=== PATIENT | female | born 1995 | race Caucasian/White ===

== ENCOUNTER 2018-08-20 15:55 | Emergency (ER) | payer OTHER, SELFPAY ==
[2018-08-20 15:57] VITALS: BP 139/72; PULSE 94; RESP 16; TEMP 37.1; O2SAT 100; BMI 21.9
--- NOTE | 2018-08-20 16:05 | NURSING ---
NO OLD EKGS
[2018-08-20 16:13] VITALS: O2SAT 96
--- NOTE | 2018-08-20 16:13 | EKG12_ITS ---
Test Reason : PALPS Blood Pressure : / mmHG Vent. Rate : 088 BPM Atrial Rate : 088 BPM P-R Int : 144 ms QRS Dur : 084 ms QT Int : 376 ms P-R-T Axes : 072 094 066 degrees QTc Int : 454 ms Normal sinus rhythm with sinus arrhythmia Rightward axis Borderline ECG Confirmed by KENYA PRATT, SWAPNA ([id number]), editor sound ROX LINN ([id number]) on 08/23/2018 12:52:26 PM Referred By: JUN Confirmed By:SWAPNA ZAMBRANO MD
--- NOTE | 2018-08-20 16:13 | RAD_ITS ---
STUDY: X-RAY CHEST REASON FOR EXAM: Female, 23 years old. TECHNIQUE: 2 views COMPARISON: None. FINDINGS: The lungs are clear and expanded. There is no demonstrated pleural abnormality. Normal size heart. Normal mediastinum and tish. Normal visualized pulmonary arteries. Normal visualized aortic arch and descending thoracic aorta. Normal visualized thoracic spine. Normal visualized ribs, clavicles, and shoulders. There is no demonstrated abnormality of the visualized soft tissue structures of the upper abdomen. RAD/Chest PA and Lateral IMPRESSION: Normal x-ray examination of the chest. Electronically Signed: Emily Whitney, at 16:53 EST Tel , Service support ,
--- NOTE | 2018-08-20 16:15 | ED.VISSUMM ---
- ER Visit Summary Date of Service: 08/20/18 Chief Complaint: Palpitations History of Present Illness: The patient is a 23 F who presents for 2 hours of frequent palpitations. Patient states she has been having these episodes occur over the last 2 months. She will have episodes where she feels her heart is racing and skipping beats, with associated chest tightness and shortness of breath. Episodes last anywhere from 10-30 minutes. Patient states today her symptoms have been frequent since this morning. She denies any fever, weight loss, vision changes, URI symptoms, abdominal pain, nausea vomiting or diarrhea. No urinary symptoms. Patient denies any stimulant use including caffeine, energy drinks, or tobacco or drugs. No recent alcohol use. 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 She is on oral contraceptives. No recent travel or surgery. No history of venous thromboembolism. Physical Examination: Vital signs: afebrile, hemodynamically stable, no hypoxia on room air General: well nourished, well developed, in no distress, appears mildly anxious Skin: warm, dry, no rash, no pallor HEENT: normocephalic and atraumatic; PERRL, EOMI, moist mucous membranes Cardiovascular: regular rate and rhythm without murmurs, no peripheral edema, 2+ pulses all distal extremities Respiratory: No increased work of breathing, lungs are clear to auscultation bilaterally, no rales, rhonchi or wheezing Abdominal: Abdomen is soft, nontender with normoactive bowel sounds, no guarding or rebound, no masses MSK: Moves all extremities, no deformities, normal strength Neuro: Awake and alert, oriented ?4. No facial droop, sensation and motor function intact and symmetric Test Results: Abnormal Lab Results 08/20/18 08/20/18 08/20/18 16:34 16:34 16:55 WBC 7.8 RBC 4.51 Hgb 13.9 Hct 40.6 MCV 90.0 MCH 30.8 MCHC 34.2 RDW 11.9 RDW Differential 39.0 Plt Count 257 MPV 10.3 Immature Gran % (Auto) 0.100 Neut % (Auto) 48.9 Lymph % (Auto) 38.3 Crowley % (Auto) 6.9 Eos % (Auto) 5.2 H Baso % (Auto) 0.6 Absolute Neuts (auto) 3.8 Absolute Lymphs (auto) 2.99 Total Counted Not Reportable Sodium 138 Potassium 3.3 L Chloride 106 Carbon Dioxide 23.0 Anion Gap 9 BUN 13 Creatinine 0.88 Estim Creat Clear Calc 88.70 Est GFR (MDRD) Af Amer 101 Est GFR (MDRD) Non-Af 83 BUN/Creatinine Ratio 14.7 Glucose 85 Calcium 9.6 Magnesium 2.2 Troponin I < 0.015 TSH 2.49 Urine Color Urine Clarity Urine pH Ur Specific [place] Urine Protein Urine Glucose (UA) Urine Ketones Urine Occult Blood Urine Nitrite Urine Bilirubin Urine Urobilinogen Ur Leukocyte Esterase Urine RBC Urine WBC Ur Squamous Epith Cells Triple Phos Crystals Amorphous Sediment Urine Bacteria Urine Mucus Urine Test Negative 08/20/18 16:55 WBC RBC Hgb Hct MCV MCH MCHC RDW RDW Differential Plt Count MPV Immature Gran % (Auto) Neut % (Auto) Lymph % (Auto) Crowley % (Auto) Eos % (Auto) Baso % (Auto) Absolute Neuts (auto) Absolute Lymphs (auto) Total Counted Sodium Potassium Chloride Carbon Dioxide Anion Gap BUN Creatinine Estim Creat Clear Calc Est GFR (MDRD) Af Amer Est GFR (MDRD) Non-Af BUN/Creatinine Ratio Glucose Calcium Magnesium Troponin I TSH Urine Color Yellow Urine Clarity Clear Urine pH 7.0 Ur Specific [place] 1.005 Urine Protein Negative Urine Glucose (UA) Normal Urine Ketones Negative Urine Occult Blood Negative Urine Nitrite Negative Urine Bilirubin Negative Urine Urobilinogen Normal Ur Leukocyte Esterase 25 H Urine RBC 0 SEEN Urine WBC 0-5 SEEN Ur Squamous Epith Cells 0-5 SEEN Triple Phos Crystals RARE Amorphous Sediment 1+ PHOS Urine Bacteria 0 SEEN Urine Mucus 0 SEEN Urine Test Clinical Impression(s) from Imaging Studies Chest X-Ray 08/20/18 16:13 IMPRESSION: Normal x-ray examination of the chest. Electronically Signed: Emily Whitney, at 16:53 EST Tel , Service support , Medications Given Discontinued Medications Sodium Chloride () 1,000 mls @ 1,000 mls/hr IV .Q1H ONE Stop: 08/20/18 17:12 Last Admin: 08/20/18 16:30 Dose: 1,000 mls/hr Lorazepam (Ativan) 0.5 mg PO X1 ONE Stop: 08/20/18 16:15 Last Admin: 08/20/18 16:31 Dose: 0.5 mg Emergency Department Course and Treatment: Patient was having mild symptoms upon initial presentation, and telemetry showed a sinus rhythm with no ectopy or tachycardia. EKG showed sinus rhythm with no ischemic changes are proarrhythmic morphology. Patient had no leukocytosis or anemia on lab work. Electrolytes remarkable only for mild hypokalemia of 3.3. Troponin negative. negative. TSH within normal limits. X-ray of the chest showed no acute process. Patient was given a dose of Ativan for her anxiety and had great improvement in her symptoms. We discussed that no medical cause of her episodes was noted on this exam, but it does not an underlying medical etiology. She is to follow-up with her primary care provider. She was given a prescription for hydroxyzine for any further anxiousness. On reevaluation her heart rate was 84, she was normotensive, and she was feeling much better. Discharged home. Treatment Plan: [] Disposition: [] Impression: Episodic palpitations This note was generated with Fishidy dictation software. It may contain incorrect words, spelling, and punctuation that were not noted in review of the chart prior to signing ED Disposition - Plan for ED Patient: Disposition: Home or Assisted Living Chief Complaint: Palpitations Instructions: ED Palpitations Prescriptions: RX: Hydroxyzine HCl 25 mg PO TID PRN #30 tab PRN Reason: Anxiety Referrals: [facility] Doctor,Out of [Primary Care Provider] - Keep Sheba appointment Additional Instructions: Please follow-up with your doctor as scheduled for another evaluation of your episodes of heart racing. You may use the hydroxyzine as needed for symptoms of anxiousness. If you have any worsening of your condition or any new concerning symptoms, please return immediately to the emergency department for another evaluation.
[2018-08-20] MEDS: 0.9% Normal Saline 1,000 ML 1000 ML IV (16:30)
[2018-08-20] MEDS: LORazepam 0.5 MG Tablet PO (16:31)
[2018-08-20 16:42] LABS: Absolute Lymphocyte Count 2.99 X10^3/ul (0.83-4.51); Absolute Neutrophil Count 3.8 X10^3/uL (2.0-7.7); Basophil# 0.05 X10^3/uL; Basophil% 0.6 % (0-1); Eosinophil# 0.41 X10^3/uL; Eosinophils% 5.2 % (0-5); Hematocrit 40.6 % (37-47); Hemoglobin 13.9 g/dl (12.0-15.0); Lymphocyte # 2.99 X10^3/ul (4.0); Lymphocyte % 38.3 % (19-41); Mean Corp Hgb Conc 34.2 g/gl (32-36); Mean Corpuscular Hgb 30.8 pg (27.0-32.0); Mean Platelet Vol. 10.3 fl (6.2-12.0); Monocyte# 0.54 X10^3/uL; Monocyte% 6.9 % (0-10); Neutrophil # 3.81 X10^3/uL (2.7-7.7); Neutrophil % 48.9 % (47-70); Platelet Count 257 K/mm3 (150-450); RBC Distribution Width CV 11.9 % (11.6-14.6); Red Blood Count 4.51 M/mm3 (4.2-5.4); White Blood Count 7.8 K/mm3 (4.4-11.0)
[2018-08-20 16:46] LABS: POSITIVE COUNT NO; POSITIVE DIFFERENTIAL NO; POSITIVE MORPHOLOGY NO
[2018-08-20 17:02] LABS: Anion Gap 9 (5-15); BUN 13 mg/dL (7-18); BUN/Creat Ratio 14.7 RATIO (10-20); Calcium,Total 9.6 mg/dL (8.5-10.1); Chloride 106 mmol/L (98-107); Creatinine, Serum 0.88 mg/dL (0.55-1.02); EST Glomerular Filtration Rate 83 mL/min (>60); Est Glom Filt Rate - Afr Amer 101 mL/min (>60); Glucose 85 mg/dL (74-106); Magnesium 2.2 mg/dL (1.6-2.6); Potassium 3.3 mmol/L (3.5-5.1); Sodium Level 138 mmol/L (136-145); Thyroid Stim Hormone (TSH) 2.49 uIU/mL (0.358-3.74)
[2018-08-20 17:04] LABS: Bacteria 0 SEEN /hpf (None Seen); Mucous, Urine 0 SEEN /hpf (<or=2+); Red Blood Cells-Urine 0 SEEN /hpf (0-5)
[2018-08-20 17:13] LABS: Color, Urine Yellow (Yellow); Glucose, Dipstick Normal (Normal); Ketone-Dipstick Negative (Negative); Leukocyte Esterase-Dipstick 25 /ul (Negative); Nitrite-Dipstick Negative (Negative); Occult Blood-Urine Negative /ul (Negative); Protein-Dipstick Negative (Negative); Specific Gravity, Urine 1.005 (1.002-1.030); Urine Bilirubin Dipstick Negative (Negative); Urine Clarity Clear (Clear); Urine Urobilinogen Normal (Normal)
[2018-08-20 17:16] LABS: Internal QC Validated? YES +Cl - CLEAR BKGD; Pregnancy, Urine Negative Negative
[2018-08-20 17:33] LABS: Amorphous Sediment 1+ PHOS; Squamous Epithelial Cells - UA 0-5 SEEN /hpf (5-10); Triple Phosphate Crystals Ur RARE /hpf (<or=1+); White Blood Cells 0-5 SEEN /hpf (0-5)
--- NOTE | 2018-08-20 18:51 | ED.DEP ---
ED Disposition - Plan for ED Patient: Disposition: Home or Assisted Living Chief Complaint: Palpitations Instructions: ED Palpitations Prescriptions: Hydroxyzine HCl 25 mg PO TID PRN #30 tab PRN Reason: Anxiety Referrals: [facility] Doctor,Out of [Primary Care Provider] - Keep [facility] appointment Additional Instructions: Please follow-up with your doctor as scheduled for another evaluation of your episodes of heart racing. You may use the hydroxyzine as needed for symptoms of anxiousness. If you have any worsening of your condition or any new concerning symptoms, please return immediately to the emergency department for another evaluation.
[2018-08-20 18:58] VITALS: BP 103/65; PULSE 96; RESP 14; O2SAT 98
== END 2018-08-20 19:01 | disposition home or self-care (01) ==
PROVIDERS: Emergency Provider Emergency Medicine
DX: R00.2 Palpitations (principal)
CPT/HCPCS: 71046; 80048; 81001; 81025; 83735; 84443; 84484; 85025; 93005; 96360; 99285; J7030; A4216

== ENCOUNTER → 2021-03-26 15:29 | Outpatient (CLI) | payer OTHER, SELFPAY | PROVIDERS: Referring Provider Otolaryngology; Visit Provider Otolaryngology | DX: J32.9 Chronic sinusitis, unspecified (principal) | CPT/HCPCS: 87070; 87077; 87186; 87205 ==

== ENCOUNTER 2021-09-11 14:44 | Outpatient (CLI) | payer BC, MEDICAID, SELFPAY ==
--- NOTE | 2021-09-11 14:48 | CT_ITS ---
EXAM: CT MAXILLOFACIAL SINUSES WITHOUT INTRAVENOUS CONTRAST : 1995 CLINICAL INDICATION: SINUSITIS TECHNIQUE: Helically acquired images were obtained of the maxillofacial sinuses without intravenous contrast. This CT exam was performed using one or more of the following dose reduction techniques: automated exposure control, adjustment of the mA and/or kV according to patient size, and/or use of iterative reconstruction technique. This report was created using Veebow report generation technology. COMPARISON: None. FINDINGS: MAXILLARY SINUSES: Mucosal thickening. Ostiomeatal complexes are normally formed. SPHENOID SINUSES: Mucosal thickening. FRONTAL SINUSES: Mucosal thickening. ETHMOID AIR CELLS: Mucosal thickening. NASAL CAVITY/SEPTUM: Minor deviation of the nasal septum to the right of midline associated with a right-sided septal spur. Nasal turbinates are unremarkable. BONES/JOINTS: Anterior cranial fossa is unremarkable. ORBITS: Unremarkable. DENTAL: Unremarkable as visualized. No periodontal osseous erosion. . CT/Sinus/Facial Bone IMPRESSION: Mucosal thickening of the paranasal sinus suggestive of chronic sinusitis. Individualized dose optimization techniques were used for this CT. at 1523 Reported and signed by: Vishal Andrews MD Electronically Signed: Vishal Andrews MD at 15:21 EST Tel , Service support ,
== END 2021-09-11 23:59 | disposition short-term general hospital (02) ==
LOC: CT 14:47
PROVIDERS: Referring Provider Otolaryngology; Visit Provider Otolaryngology
DX: J32.9 Chronic sinusitis, unspecified (principal)
CPT/HCPCS: 70486

== ENCOUNTER 2021-09-13 10:00 | Outpatient (CLI) | payer BC, MEDICAID, SELFPAY ==
[2021-09-16 04:07] LABS: Chlamydia By Nucleic Acid AMP Negative (Negative)
[2021-09-16 11:23] LABS: Gonococcus By Nucleic Acid AMP Negative (Negative)
[2021-09-17 16:51] LABS: HPV Reflexed? NOT INDICATED
== END 2021-09-13 23:59 | disposition short-term general hospital (02) ==
LOC: WOBLAB 10:05
PROVIDERS: Visit Provider Obstetrics & Gynecology
DX: Z12.4 Encounter for screening for malignant neoplasm of cervix (principal); Z11.3 Encounter for screening for infections with a predominantly sexual mode of transmission
CPT/HCPCS: 87491; 87591; 88175; G0145

== ENCOUNTER 2021-11-12 09:44 | Day surgery (SDC) | payer BC, SELFPAY ==
[2021-11-12] VITALS (7 sets, daily range): BP systolic 109–133; BP diastolic 65–92; PULSE 62–91; RESP 16–18; TEMP 36.2–36.7; O2SAT 94–99; BMI 29.1
[2021-11-12] MEDS: Lactated Ringers 1,000 ML 15 ML IV ×2 (10:00→13:44)
[2021-11-12 10:19] LABS: Internal QC Validated? YES +Cl - CLEAR BKGD; Pregnancy, Urine Negative Negative
--- NOTE | 2021-11-12 11:05 | ETH_PTH ---
PATIENT: ANNA PAYAN [place] [facility] [id number] AGE/SX: 26/F ROOM: RE11/12/[address]: Dr. Ranjeet Churchill MD : 1995 BED: DIS: 11/12/2021 SPEC #: [id number] RECD: 11/12/21 14:34 STATUS: DANY KINCAID #: [id number] JUAN: 11/12/21 11:[address]: Ranjeet Churchill DEPT: SURGICAL PATHOLOGY RECD BY: Subha Posada ENTERED: 11/13/21 09:31 SP TYPE: ETH TISS OTHR DR: Dacia Primary Care Phys Tissues: A - Ethmoid sinus, NOS B - Ethmoid sinus, NOS Procedures: Decalcification bone/plaque Surgery Specimen Level IV HEADER OPERATION: Septoplasty/rhinoplasty, functional endoscopic sinus surgery PRE-OP DIAGNOSIS: Chronic pansinusitis TISSUE SUBMITTED: A ? Right sinus contents, B ? Left sinus contents MICROSCOPIC DIAGNOSIS A. Right sinus contents: Fragments of respiratory mucosa and turbinate with mild chronic inflammation and bone. B. Left sinus contents: Fragments of respiratory mucosa and turbinate with mild chronic inflammation and bone. ANN:zo 11/18/2021 MICROSCOPIC DESCRIPTION Slides are reviewed. GROSS DESCRIPTION A - Received in fixative is one container labeled with the patient's name and designated right sinus contents. The specimen consists of multiple irregular fragments of nolasco soft tissue mixed with fragments of bone and turbinate that in aggregate measure 3 x 2.5 x 0.3 cm. The specimen is totally submitted in one cassette after decalcification. B - Received in fixative is one container labeled with the patient's name and designated left sinus contents. The specimen consists of multiple irregular fragments of nolasco soft tissue mixed with fragments of bone and turbinate that in aggregate measure 3 x 2.5 x 0.3 cm. The specimen is totally submitted in one cassette after decalcification. / ANN:zo 11/13/2021 TC:3 CPT: 05231 x2, 47721 x2
--- NOTE | 2021-11-12 11:30 | PCM.DC ---
Discharge Instructions Diet Discharge Diet: No restrictions Activity Discharge Activity: Return to Normal Activity Dressing / Incision Call your doctor if your incision/area has: Sudden Increased Bleeding Additional Dressing/Incision Instructions:: sleep with head of bed elevated. saline to nose three times daily. mupirocin to nostrils twice daily. Follow Up Care Please Follow Up With: cait When: next thursday Test Results: Test results from this visit will be discussed in further detail at your follow-up appointment, if applicable. Discharge Plan Admission Attending Provider: Milad Churchill Primary Care Provider: Care Physician,Daica Primary Discharge Orders/Prescriptions Prescriptions: No Action Zyrtec 10 MG capsule 10 mg PO DAILY RF: 0 sertraline [Zoloft] 50 mg Tablet 50 mg PO DAILY RF: 0 Disposition Discharge Orders: Discharge Patient (Routine); Ordered 11/12/21 Ordered By: Dr. Milad Churchill
--- NOTE | 2021-11-12 11:32 | PCM.OPRPT ---
Problems Associated Problem List Diagnoses (1) Chronic pansinusitis: (2) Nasal septal deviation: (3) Hypertrophy of both inferior nasal turbinates: (4) Polyp of both nasal cavities: Report of Operation Date of Procedure: 11/12/21 Pre-Operative Diagnosis: 1. nasal congestion 2. nasal septal deviation 3. inferior turbinate hypertrophy 4. chronic pansinusitis Post-Operative Diagnosis: 1. nasal congestion 2. nasal septal deviation 3. inferior turbinate hypertrophy 4. chronic pansinusitis Surgery/Procedure Performed:: 1. endoscopic maxillary antrostomy with removal of contents, right and left 2. endoscopic total ethmoidecotmy, right and left 3. endoscopic sphenoidotomy with removal of contents, right and left 4. endoscopic frontal sinus exploration removal of contents, right and left 5. septoplasty 6. submucous resection inferior turbinates, right and left 7. CT image guidance navigation Surgeon: Milad Churchill Type of Anesthesia: General Description of Procedure: On the day of the procedure, after appropriate informed consent was obtained, the patient was brought to the operating room and placed in a supine position on the operating room table. The patient was placed under general endotracheal anesthesia by the anesthesiologist. The endotracheal tube was secured. image guidance navigation was set up on the face and accuracy was confirmed. the nose was injected with lidocaine/epinephrine and decongested with oxymetazoline-soaked pledgets. a marginal incision was made with a #15 blade on the left side. a submucoperichondrial plane was developed on the patient's left side with a zia elevator. this was taken posteriorly to the bony/cartilaginous junction and inferiorly to the maxillary crest. after an L-strut was marked, a leftward defection and bony spur were removed with a D-knife and rolo moore. the head of the right and left turbinates were injected with lidocaine/epinephrine. the head of the left inferior turbinate was incised with a 15 blade, dissected submucosally with a zia elevator, reduced using suction electrocautery and outfractured using a boies elevator. the head of the right inferior turbinate was incised with a 15 blade, dissected submucosally with a zia elevator, reduced using suction electrocautery and outfractured using a boies elevator. the zero degree endoscope was used to evaluate the nasal cavity. the superior attachment of the right and left middle turbinate and uncinate processes were injected with lidocaine/epinephrine. the left nasal cavity was evaluated. the middle turbinate was medialized. a maxillary antrostomy and uncinectomy were performed with a zia elevator and a pilo cut. the antrostomy was widened with a back-biter. purulent material was evacuated. the ethmoid bulla was entered bluntly with the suction. a total ethmoidectomy was performed with a curette and an upgoing blakesley. this was taken superiorly to the skull base and laterally to the lamina. a stankewicz maneuver was performed and no laminar defect was noted. the natural sphenoid os was widened with the microdebrider and contents were evacuated. the frontal recess was explored and contents were evacuated. hemostasis was achieved with suction cautery; emmanuel was placed. the right nasal cavity was evaluated. the middle turbinate was medialized. a maxillary antrostomy and uncinectomy were performed with a zia elevator and a pilo cut. the antrostomy was widened with a back-biter. the ethmoid bulla was entered bluntly with the suction. a total ethmoidectomy was performed with a curette and an upgoing blakesley. this was taken superiorly to the skull base and laterally to the lamina. a stankewicz maneuver was performed and no laminar defect was noted. the natural sphenoid os was widened with the microdebrider and contents were evacuated. the frontal recess was explored and contents were evacuated. hemostasis was achieved with suction cautery; emmanuel was placed. chopra splints were sutured into place. a nasogastric tube was inserted orally and contents were evacuated. the table was rotated 90 degrees toward the anesthesiologist and was subsequently extubated uneventfully. he was transferred to the PACU in stable condition.
[2021-11-12] MEDS: Clindamycin 900 MG/50 ML BAG 75 MG IV (11:44)
[2021-11-12] MEDS: Oxymetazoline 0.05% 1 SPRAY SPRAY.BTL 15 SPRAY (13:27)
[2021-11-12] MEDS: Mupirocin Ointment 22gm Tube 1 APPLIC (13:27)
[2021-11-12] MEDS: Lidocaine 1% /Epi 1:100 (50ml) 50 ML VIAL (13:28)
[2021-11-12] MEDS: HYDROcodone Bitartrate/Apap 5/325 Tablet PO (14:58)
== END 2021-11-12 23:59 | disposition home or self-care (01) ==
LOC: SDC 09:47 → AC 09:49
PROVIDERS: Anesthesiology; Visit Provider Otolaryngology
PROC: (CPT 30520; principal; 2021-11-12 10:50)
DX: J34.2 Deviated nasal septum (principal); J32.4 Chronic pansinusitis; J33.9 Nasal polyp, unspecified; J34.3 Hypertrophy of nasal turbinates; Z79.899 Other long term (current) drug therapy
CPT/HCPCS: 31257; 30520; 30140; 31276; 31267; 00160; 81025; 88305; 88311; J7120; J2405

== ENCOUNTER 2021-11-14 15:38 | Outpatient (CLI) | payer BC, SELFPAY ==
--- NOTE | 2021-11-14 | IMM_PTH ---
PATIENT: ANNA PAYAN LOC: [facility] U#:[id number] AGE/SX: 26/F ROOM: RE11/14/[address]: Dr. Agustín Sarabia MD : 1995 BED: DIS: 11/14/2021 SPEC #: [id number] RECD: 11/18/21 12:39 STATUS: DANY REQ #: [id number] JUAN: 11/14/21 00:[address]: Agustín Sarabia DEPT: IMMUNOHISTOCHEMISTRY RECD BY: Keli Cardona ENTERED: 11/18/21 12:40 SP TYPE: IMMUNO OT DR: No Primary Care Phys Tissues: B - Uterine cervix, NOS Procedures: p16 (initial) KI-67 (add) PHYSICIAN & INSTITUTION [place] [id number] SPECIMEN INFORMATION: Tissue Source: B ? Cervical biopsy Clinical Info: CHERRIE Specimen Number: [id number] CPT code: 42403, 89478 METHODOLOGY: Deparaffinized sections of prefer/formalin-fixed tissue or PAP/DQ stained slides are incubated with monoclonal/polyclonal antibodies/oligonucleotide probes. Localization is made via biotin free immunoperoxidase method. Appropriate controls are performed and reacted as expected. Results on target cell population are indicated in the following table: RESULTS: ANTIBODY / CLONE RESULT Block B P16 (E6H4) positive, patchy, focal Ki-67 (30-9) positive, low These tests were developed and their performance characteristics determined by [facility]. They may not have been cleared or approved by the U.S. Food and Drug Administration. The FDA has determined that such clearance or approval is not necessary. The above immunohistochemical/dualISH markers are ordered and reviewed by the Pathologist. INTERPRETATION: B. Cervical biopsy: Focal changes consistent with HPV cytopathic effects. SJ:zo 11/19/2021
--- NOTE | 2021-11-14 | CER_PTH ---
PATIENT: ANNA PAYAN [facility][id number] AGE/SX: 26/F ROOM: RE11/14/[address]: Dr. Agustín Sarabia MD : 1995 BED: DIS: 11/14/2021 SPEC #: [id number] RECD: 11/14/21 17:08 STATUS: DANY REMax #: [id number] JUAN: 11/14/21 00:[address]: Agustín Sarabia DEPT: SURGICAL PATHOLOGY RECD BY: Neftali Ta ENTERED: 11/15/21 08:52 SP TYPE: CERV OTHR DR: No Primary Care Phys Tissues: A - Endocervical B - Uterine cervix, NOS Procedures: Surgery Specimen Level IV HEADER OPERATION: Colposcopy PRE-OP DIAGNOSIS: LGSIL TISSUE SUBMITTED: A ? Endocervical curettings, B ? Cervical biopsy MICROSCOPIC DIAGNOSIS A. Endocervical curettings: Fragments of benign ectocervical epithelium and benign endocervical mucosa with chronic inflammation. Negative for dysplasia. B. Cervix, biopsy: Fragments of ectocervical mucosa with changes consistent with HPV cytopathic effects. See comment. ANN:zo 11/18/2021 COMMENT B. Immunohistochemistry ([id number]) for surrogate HPV marker (p16) supports the above diagnosis. MICROSCOPIC DESCRIPTION Slides are reviewed. GROSS DESCRIPTION A - Received in fixative is one container labeled with the patient's name and designated endocervical curettings. The specimen consists of a scant amount of soft tissue. The specimen is totally submitted for cell block preparation. B - Received in fixative is one container labeled with the patient's name and designated cervical biopsy. The specimen consists of multiple (four) irregular fragments of light nolasco soft tissue that in aggregate measure 1.3 x 0.3 x 0.2 cm. The specimen is totally submitted in one cassette. / ANN:zo 11/15/2021 TC:5 CPT: 67794 x2
== END 2021-11-14 23:59 | disposition home or self-care (01) ==
LOC: LABSPEC 15:39
PROVIDERS: Referring Provider Obstetrics & Gynecology; Visit Provider Obstetrics & Gynecology
DX: R87.622 Low grade squamous intraepithelial lesion on cytologic smear of vagina (LGSIL) (principal)
CPT/HCPCS: 88305; 88341; 88342

== ENCOUNTER → 2022-02-04 | Outpatient (CLI) | payer BC, SELFPAY ==
[2022-02-06 22:07] LABS: Chlamydia By Nucleic Acid AMP Negative (Negative)
[2022-02-06 22:13] LABS: Gonococcus By Nucleic Acid AMP Negative (Negative)
== END | disposition home or self-care (01) ==
LOC: LABSPEC 15:23
PROVIDERS: Visit Provider Obstetrics & Gynecology
DX: Z11.3 Encounter for screening for infections with a predominantly sexual mode of transmission (principal)
CPT/HCPCS: 87491; 87591

== ENCOUNTER 2022-03-04 09:50 | Outpatient (CLI) | payer BC, SELFPAY ==
[2022-03-04 12:18] LABS: Absolute Lymphocyte Count 2.09 X10^3/uL (0.83-4.51); Absolute Neutrophil Count 3.1 X10^3/uL (2.0-7.7); Basophil# 0.06 X10^3/uL; Eosinophil# 0.28 X10^3/uL; Eosinophils% 4.7 % (0-5); Hematocrit 41.2 % (37-47); Hemoglobin 13.9 g/dL (12.0-15.0); Lymphocyte # 2.09 X10^3/ul (0.83-4.51); Mean Corp Hgb Conc 33.7 g/dL (32-36); Mean Corpuscular Hgb 30.5 pg (27.0-32.0); Mean Corpuscular Volume 90.5 fL (81-99); Mean Platelet Vol. 10.7 fl (6.2-12.0); Monocyte# 0.47 X10^3/uL; Monocyte% 7.9 % (0-10); NRBC Flagged by Analyzer 0 % (0-5); Neutrophil # 3.06 X10^3/uL (2.7-7.7); Neutrophil % 51.2 % (47-70); Platelet Count 275 K/mm3 (150-450); RBC Distribution Width CV 12.3 % (11.6-14.6); RBC Distribution Width SD 40.7 fl (35.1-43.9); Red Blood Count 4.55 M/mm3 (4.2-5.4)
[2022-03-04 12:56] LABS: AST(SGOT) 21 U/L (15-37); Alanine Aminotransfer ALT/SGPT 24 U/L (13-56); Albumin, Serum 3.9 g/dL (3.2-5.0); Alkaline Phosphatase 63 U/L (45-117); Anion Gap 5 (5-15); BUN 12 mg/dL (7-18); BUN/Creat Ratio 13.2 RATIO (10-20); Calcium,Total 9.3 mg/dL (8.5-10.1); Chloride 103 mmol/L (98-107); Cholesterol 208 mg/dL (200); Creatinine, Serum 0.91 mg/dL (0.55-1.02); EST Glomerular Filtration Rate 78 mL/min (>60); Est Glom Filt Rate - Afr Amer 95 mL/min (>60); Glucose 90 mg/dL (74-106); High Density Lipoprotein 68 mg/dL; Potassium 3.8 mmol/L (3.5-5.1); Protein, Total 7.9 g/dL (6.4-8.2); Sodium Level 134 mmol/L (136-145); Thyroid Stim Hormone (TSH) 2.08 uIU/mL (0.358-3.74); Triglycerides 78 mg/dL; Very Low Density Lipoprotein 16 mg/dL (5-40)
== END 2022-03-04 23:59 | disposition home or self-care (01) ==
LOC: MFPLAB 09:51
PROVIDERS: PCP Family Medicine; Referring Provider Family Medicine; Visit Provider Family Medicine
DX: Z00.00 Encounter for general adult medical examination without abnormal findings (principal); Z13.29 Encounter for screening for other suspected endocrine disorder; Z13.220 Encounter for screening for lipoid disorders; Z13.1 Encounter for screening for diabetes mellitus; Z13.0 Encounter for screening for diseases of the blood and blood-forming organs and certain disorders involving the immune mechanism
CPT/HCPCS: 36415; 80053; 80061; 83036; 84443; 85025

== ENCOUNTER → 2022-03-12 | Outpatient (CLI) | payer BC, SELFPAY | END | disposition home or self-care (01) | LOC: LABSPEC 15:18 | PROVIDERS: PCP Family Medicine; Visit Provider Otolaryngology | DX: J32.8 Other chronic sinusitis (principal) | CPT/HCPCS: 87070; 87077; 87186; 87205 ==

== ENCOUNTER → 2022-09-11 | Outpatient (CLI) | payer OTHER, SELFPAY | END | disposition home or self-care (01) | LOC: LABSPEC 15:57 | PROVIDERS: PCP Family Medicine; Referring Provider Otolaryngology; Visit Provider Otolaryngology | DX: J32.9 Chronic sinusitis, unspecified (principal) | CPT/HCPCS: 87070; 87077; 87186; 87205 ==

== ENCOUNTER → 2023-03-26 | Outpatient (CLI) | payer OTHER, SELFPAY ==
--- NOTE | 2023-03-26 18:18 | US_ITS ---
EXAM: US , TRANSVAGINAL CLINICAL INDICATION: DATING TECHNIQUE: Real-time transvaginal obstetrical ultrasound of the maternal pelvis and a first trimester with image documentation. Transvaginal imaging was used for better evaluation of the fetus and adnexa. COMPARISON: No relevant prior studies available. FINDINGS: GESTATION: There is an intrauterine gestational sac sac diameter 1.6 cm HC. There is a 4 mm yolk sac. [place]-rump length of 4 mm age 6 weeks 2 days. No cardiac activity is identified on this study. PLACENTA/AMNIOTIC FLUID: There is a 1.0 x 0.5 cm hypoechoic area in the uterus adjacent to gestational sac which may represent subchorionic hemorrhage. UTERUS/CERVIX: The uterus measures 7.1 x 4.0 x 6.1 cm. No myometrial mass. OVARIES: The left ovary measures 3.5 x 2.0 0.9 cm. There is a 5 x 2.2 x 4 cm cyst in the left ovary. The right ovary measures 2.2 x 1.0 x 1.8 cm. No mass. FREE FLUID: No free fluid. US/Transvaginal w/Preg US IMPRESSION: Intrauterine gestation with an average ultrasound age of 6 weeks 3 days and ultrasound estimated due date of 11/16/2023. There is no heart rate identified at this time which may be due to early gestation. Short-term follow-up ultrasound may be beneficial. Electronically Signed: Tom Hutton MD at 20:37 EDT ,
[2023-03-29 08:08] LABS: Chlamydia By Nucleic Acid AMP Negative (Negative); Gonococcus By Nucleic Acid AMP Negative (Negative)
[2023-04-01 18:58] LABS: HPV Reflexed? NOT INDICATED
== END | disposition home or self-care (01) ==
PROVIDERS: PCP Family Medicine; Referring Provider Obstetrics & Gynecology; Visit Provider Obstetrics & Gynecology
DX: Z34.90 Encounter for supervision of normal pregnancy, unspecified, unspecified trimester (principal)
CPT/HCPCS: 76817; 87086; 87088; 87491; 87591; 88175; G0145

== ENCOUNTER → 2023-03-31 | Outpatient (CLI) | payer OTHER, SELFPAY ==
--- NOTE | 2023-03-31 13:32 | US_ITS ---
STUDY: FIRST TRIMESTER OBSTETRICAL ULTRASOUND REASON FOR EXAM: Female, 28 years old . Viability. LMP: January 17, 2023 TECHNIQUE: Transvaginal TECHNICAL QUALITY: Adequate. PRIOR ULTRASOUND: Comparison is made with prior study March 26, 2023. FINDINGS: There is visualization of a single gestational sac in a normal intrauterine position. The mean sac diameter (MSD) measures 1.73 cm, indicating an estimated gestational age (EGA) of 6 weeks, 4 days. The gestational sac shape is irregular. There is a visualized yolk sac. The yolk sac measures 3.5 mm. The placenta is non-visualized. There is visualization of an embryo with no cardiac activity, consistent with intrauterine demise. The crown-rump length (CRL) measures 4.3 mm, indicating an estimated gestational age (EGA) of 6 weeks, 2 days. The estimated gestation age (EGA) by LMP is 10 weeks, 3 days. The estimated date of delivery (TESFAYE) by LMP is October 24, 2023. The estimated gestation age (EGA) by US is 6 weeks, 3 days. The estimated date of delivery (TESFAYE) by US is November 21, 2023. The uterus measures 9.3 cm x 6.6 x 4.8 cm. There is no demonstrated uterine fibroid. The cervix is closed. Small subchorionic bleed. The right ovary measures 2 cm x 1.2 cm x 1.5 cm. There is no right ovarian cyst. There is no visualized right adnexal mass or complex lesion. The left ovary measures 3.5 cm x 2.4 cm x 2.2 cm. There is no left ovarian cyst. There is no visualized left adnexal mass or complex lesion. There is no fluid in the cul de sac. US/Transvaginal w/Preg US IMPRESSION: demise. Electronically Signed: Marky Menjivar MD at 14:34 EDT ,
== END | disposition home or self-care (01) ==
PROVIDERS: PCP Family Medicine; Referring Provider Obstetrics & Gynecology; Visit Provider Obstetrics & Gynecology
DX: Z34.90 Encounter for supervision of normal pregnancy, unspecified, unspecified trimester (principal)
CPT/HCPCS: 76817

== ENCOUNTER 2023-04-02 10:58 | Day surgery (SDC) | payer OTHER, SELFPAY ==
[2023-04-02] VITALS (7 sets, daily range): BP systolic 97–110; BP diastolic 58–77; PULSE 59–82; RESP 16–18; TEMP 36.2–36.3; O2SAT 98–100; BMI 32.1
--- NOTE | 2023-04-02 11:10 | PCM.HP.BLA ---
History and Physical MR#: [id number] Acct: [id number] Name: ANNA DAMON Rep #: [id number] : 1995 Provider: Dr. 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 Sandi Longo MD) Alcohol use Anxiety Asthma Chronic pansinusitis COVID-19 History of echocardiogram Hypertrophy of both inferior nasal turbinates Injury of head and neck Migraine headache Nasal septal deviation Non-smoker Polyp of both nasal cavities Wears contact lenses Surgical History H/O nasal septoplasty Hx of colonoscopy Hx of hand surgery Family History (Updated 03/26/23 @ 10:57 by Caroline Turpin) Grandfather Heart disease HypertensionFather Hypertension Social History (Updated 03/26/23 @ 10:57 by Caroline Turpin) Smoking Status: Never smoker details: not while substance use type: does not use caffeine: Yes what type of physical activity do you participate in: bicycling and weight training frequency: 1-2 times per week seatbelt use: always do you feel safe at home: Yes additional social history: - Eben [facility] demise Details: ANNA DAMON is a 28 year old who presents for follow up of early she denies any bleeding or discharge denies any pelvic pain. she is having some crmaping but nothing severe no fevers. repeat ultrasound shows no significant interval growth and no heart rate. History 1 Elective abortions Hx Para Spontaneous abortions Hx # Term Pregnancies Ectopic pregnancies Hx # Pregnancies Multiple births # of living children ROS Const Constitutional: Denies fatigue, fever(s), headache(s), increased appetite, poor appetite, weight gain or weight loss GI GI: Reports as per HPI; Denies abdominal pain, constipation, nausea or vomiting : Reports as per HPI; Denies difficulty voiding, dysuria, hematuria, pelvic pain, urinary frequency, urinary incontinence, urinary hesitancy, urinary urgency, vaginal discharge, vaginal dryness, vaginal odor, vaginal pruritus or other Exam Const General: cooperative, healthy appearing, comfortable, no acute distress and well developed Orientation: alert HENMT Head: normal to inspection and normocephalic Ears: hearing grossly normal bilaterally and external ears normal Nose: external nose normal and nares normal Face and sinus: normal facial exam Neck Neck: normal visual inspection, no lymphadenopathy and trachea midline Thyroid: thyroid normal Resp Effort & Inspection: normal respiratory effort Musc Other: gross motor intact no deficits, full bilateral strength Skin General: no rashes or lesions noted Neuro Motor: muscle tone normal throughout Coding Level of Care Code Off vis,est,level 4 Diagnoses LGSIL of cervix of undetermined significance R87.612 Seasonal allergies J30.2 Supervision of high risk in first trimester O09.91 Obesity affecting O99.210 Z34.90 Missed O02.1 Assessment and Plan Assessment and Plan (1) LGSIL of cervix of undetermined significance: Status: Acute Comment: 08/2021 (2) Seasonal allergies: Status: Acute (3) Supervision of high risk in first trimester: Status: Acute Comment: : Eben (4) Obesity affecting : Status: Acute Comment: 1 hr GTT given at [facility] (5) : Status: Acute (6) Missed : Status: Acute Comment: DISCUSSED OPTIONS PLAN SUCTION D AND C Plan After discussing the patient's diagnosis and treatment plan options, patient wishes to proceed with surgical management. I have discussed with the patient the risks, benefits, and alternatives of the procedure which include but are not limited to risks of anesthesia, bleeding, infection, possible damage to bowel, bladder, or surrounding vasculature which could lead to additional surgery to evaluate any complications. Patient agrees to procedure and wishes to proceed. ACOG/uptodate references given for additional information regarding procedure. UPDATE- I have seen the patient and performed any clinically relevant updates to the history and physical exam. Sandi Longo MD
[2023-04-02] MEDS: Lactated Ringers 1,000 ML 15 ML IV (11:39)
[2023-04-02] MEDS: Doxycycline 100 MG CAPSULE PO (11:41)
[2023-04-02 11:43] LABS: Hematocrit 40.2 % (37-47); Hemoglobin 13.5 g/dL (12.0-15.0); Mean Corp Hgb Conc 33.6 g/dL (32-36); Mean Corpuscular Hgb 30.3 pg (27.0-32.0); Mean Corpuscular Volume 90.3 fL (81-99); Mean Platelet Vol. 9.8 fl (6.2-12.0); Platelet Count 286 K/mm3 (150-450); RBC Distribution Width CV 11.7 % (11.6-14.6); RBC Distribution Width SD 38.8 fl (35.1-43.9); Red Blood Count 4.45 M/mm3 (4.2-5.4); White Blood Count 7.6 K/mm3 (4.4-11.0)
--- NOTE | 2023-04-02 12:30 | POC_PTH ---
PATIENT: ANNA PAYAN LOC: [facility] [place] U#:[id number] AGE/SX: 28/F ROOM: RE04/02/[address]: Dr. Sandi Longo MD : 1995 BED: DIS: 04/02/2023 SPEC #: [id number] RECD: 04/02/23 14:10 STATUS: DANY KINCAID #: [id number] JUAN: 04/02/23 12:[address]: Sandi Longo DEPT: SURGICAL PATHOLOGY RECD BY: Mary Ann Brown ENTERED: 04/03/23 09:05 SP TYPE: PROD CONC OTHR DR: Meseret Walker DO Tissues: Product of conception, NOS Procedures: Surgery Specimen Level IV HEADER OPERATION: Suction dilation and curettage PRE-OP DIAGNOSIS: Missed TISSUE SUBMITTED: Products of conception MICROSCOPIC DIAGNOSIS Endometrium, curettage: Chorionic villi with focal hydropic change, decidualized stroma and trophoblastic cells consistent with products of conception. AM:zo 04/06/2023 MICROSCOPIC DESCRIPTION Slides are reviewed. GROSS DESCRIPTION Received in fixative is one container labeled with the patient's name and designated products of conception. The specimen consists of multiple irregular fragments of light nolasco soft tissue that in aggregate measure 7.0 x 5.0 x 1.0 cm. parts are not grossly recognized. Blood And Plasma Laboratory Assistant portions are submitted in one cassette. / AM:zo 04/03/2023 TC:5 CPT: 03430
[2023-04-02] MEDS: Lidocaine 1% (30 ml sdv) 30 ML Vial (12:35)
--- NOTE | 2023-04-02 13:36 | DCINST_ITS ---
Discharge Instructions Diet Discharge Diet: No restrictions Activity Discharge Activity: Return to Normal Activity, May Shower and May Take a Tub Bath (after 1 week) May resume sexual activity in: 1-2 weeks Weight Bearing Status: Weight bearing as tolerated Lifting Restrictions: none Dressing / Incision Call your doctor if you observe: Fever of 101 or Higher, Using more than 1 pad per hour, Shortness of breath and Uncontrolled pain Follow Up Care Please Follow Up With: Sandi Longo MD When: Call [phone] to schedule appointment. Test Results: Test results from this visit will be discussed in further detail at your follow- up appointment, if applicable. Discharge Plan Admission Attending Provider: Sandi Longo Primary Care Provider: Meseret Walker Discharge Orders/Prescriptions Prescriptions: No Action citalopram [Celexa] 20 mg tablet 20 mg PO DAILY Zyrtec 10 MG capsule 10 mg PO DAILY Referrals / Follow Up: Meseret Walker, DO [Primary Care Provider] - Disposition Disposition (needs filled in before D/C Order can be placed): Home, Self Care
--- NOTE | 2023-04-02 13:36 | PCM.OPRPT ---
Problems Associated Problem List Diagnoses (1) Missed : Report of Operation Date of Procedure: 04/02/23 Pre-Operative Diagnosis: see problem list Post-Operative Diagnosis: same Surgery/Procedure Performed:: Suction dilation and curettage Description of Surgical Findings:: no FHT present, Nonviable 8 measuring 6 weeks Surgeon: Sandi Longo football pad repairer: None Type of Anesthesia: Local MAC Special Medications: none Specimen's removed: POC Drains: none Estimated Blood Loss (mL): 50 Fluids Replaced: crystalloid Description of Procedure: Patient was taken to the operating room and placed under MAC local anesthesia. She was prepped and draped in the normal sterile fashion the dorsal lithotomy position. Bladder was drained of clear urine and anterior lip of the cervix was grasped and the uterus sounded to 9. Cervix was progressively dilated to allow passage of a 9mm suction curette. Progressive passes were made removing the retained products of conception without complication. Sharp curettage confirmed complete removal of the retained products. All instruments were removed from the vagina and excellent hemostasis was noted and the patient was taken to recovery in stable condition. Grafts/Implants Used: none Complications none Admit VTE Documentation VTE Present on Admission: No VTE Mechan Device Prophylaxis: SCD's Procedures Urinary/Genital 52xxx-59xxx: 87910 Trmt of incomplete Ab, any TM
[2023-04-02] MEDS: Oxycodone/Apap 5/325 Tablet PO (13:45)
== END 2023-04-02 14:14 | disposition home or self-care (01) ==
LOC: SDC 10:58 → AC 10:59
PROVIDERS: PCP Family Medicine; Referring Provider Obstetrics & Gynecology; Visit Provider Obstetrics & Gynecology
PROC: (CPT 59820; principal; 2023-04-02 12:15)
DX: O02.1 Missed abortion (principal); O99.511 Diseases of the respiratory system complicating pregnancy, first trimester; O99.891 Other specified diseases and conditions complicating pregnancy; O99.211 Obesity complicating pregnancy, first trimester; O99.341 Other mental disorders complicating pregnancy, first trimester; J30.2 Other seasonal allergic rhinitis; R87.612 Low grade squamous intraepithelial lesion on cytologic smear of cervix (LGSIL); F41.9 Anxiety disorder, unspecified; Z79.899 Other long term (current) drug therapy; Z86.16 Personal history of COVID-19
CPT/HCPCS: 59820; 01965; 85027; 86850; 86900; 86901; 88305; J7120; J2405

== ENCOUNTER → 2023-07-02 | Outpatient (CLI) | payer OTHER, SELFPAY ==
--- NOTE | 2023-07-02 10:36 | US_ITS ---
STUDY: FIRST TRIMESTER OBSTETRICAL ULTRASOUND REASON FOR EXAM: Female, 28 years old cramping LMP: May 15, 2023. TECHNIQUE: Transvaginal TECHNICAL QUALITY: Adequate. PRIOR ULTRASOUND: None. FINDINGS: There is visualization of a single gestational sac in a normal intrauterine position. The mean sac diameter (MSD) measures 1.69 cm, indicating an estimated gestational age (EGA) of 6 weeks, 4 days. The gestational sac shape is within normal limits. There is a visualized yolk sac. The yolk sac measures 4 mm. The placenta is non-visualized. There is visualization of a live embryo. The crown-rump length (CRL) measures 4 mm, indicating an estimated gestational age (EGA) of 6 weeks, 2 days. There is demonstrated cardiac activity with a heart rate of 114 bpm. The estimated gestation age (EGA) by LMP is 6 weeks, 6 days. The estimated date of delivery (TESFAYE) by LMP is February 19, 2024. The estimated gestation age (EGA) by US is 6 weeks, 3 days. The estimated date of delivery (TESFAYE) by US is February 22, 2024. The uterus measures 9 cm x 6.5 cm x 4.4 cm. There is no demonstrated uterine fibroid. The cervix is closed. The right ovary measures 2.8 cm x 1.5 cm x 1.5 cm. There is no right ovarian cyst. There is no visualized right adnexal mass or complex lesion. The left ovary measures 4 cm x 3.1 cm x 2.7 cm. There is a 3 cm x 2.5 cm x 2.1 cm corpus luteum cyst in the left ovary. There is no visualized left adnexal mass or complex lesion. There is no fluid in the cul de sac. US/Transvaginal w/Preg US IMPRESSION: Single live intrauterine gestation with a mean gestational age of 6 weeks and 3 days. 3 cm x 2.5 cm x 2.1 cm corpus luteum cyst in the left ovary. Electronically Signed: Marky Menjivar MD at 12:24 EST ,
== END | disposition home or self-care (01) ==
LOC: US 10:33
PROVIDERS: PCP Family Medicine; Referring Provider Obstetrics & Gynecology; Visit Provider Obstetrics & Gynecology
DX: O09.299 Supervision of pregnancy with other poor reproductive or obstetric history, unspecified trimester (principal); O99.891 Other specified diseases and conditions complicating pregnancy; R10.2 Pelvic and perineal pain; Z3A.00 Weeks of gestation of pregnancy not specified
CPT/HCPCS: 76817

== ENCOUNTER → 2023-07-08 | Outpatient (CLI) | payer OTHER, SELFPAY ==
[2023-07-13 05:06] LABS: Chlamydia By Nucleic Acid AMP Negative (Negative); Gonococcus By Nucleic Acid AMP Negative (Negative)
== END | disposition home or self-care (01) ==
LOC: LABSPEC 16:44
PROVIDERS: PCP Family Medicine; Referring Provider Obstetrics & Gynecology; Visit Provider Obstetrics & Gynecology
DX: O09.90 Supervision of high risk pregnancy, unspecified, unspecified trimester (principal); Z3A.00 Weeks of gestation of pregnancy not specified
CPT/HCPCS: 87077; 87086; 87088; 87186; 87491; 87591

== ENCOUNTER → 2023-07-27 | Outpatient (CLI) | payer OTHER, SELFPAY ==
[2023-07-27 10:49] LABS: Absolute Lymphocyte Count 1.76 X10^3/uL (0.83-4.51); Absolute Neutrophil Count 8.5 X10^3/uL (2.0-7.7); Basophil# 0.05 X10^3/uL; Basophil% 0.4 % (0-1); Eosinophil# 0.19 X10^3/uL; Eosinophils% 1.7 % (0-5); Hematocrit 39.3 % (37-47); Hemoglobin 13.3 g/dL (12.0-15.0); Lymphocyte # 1.76 X10^3/ul (0.83-4.51); Lymphocyte % 15.7 % (19-41); Mean Corp Hgb Conc 33.8 g/dL (32-36); Mean Corpuscular Hgb 30.3 pg (27.0-32.0); Mean Corpuscular Volume 89.5 fL (81-99); Mean Platelet Vol. 10.3 fl (6.2-12.0); Monocyte# 0.62 X10^3/uL; Monocyte% 5.5 % (0-10); NRBC Flagged by Analyzer 0 % (0-5); Neutrophil # 8.54 X10^3/uL (2.7-7.7); Neutrophil % 76.3 % (47-70); Platelet Count 272 K/mm3 (150-450); RBC Distribution Width CV 11.9 % (11.6-14.6); RBC Distribution Width SD 38.5 fl (35.1-43.9); Red Blood Count 4.39 M/mm3 (4.2-5.4); White Blood Count 11.2 K/mm3 (4.4-11.0)
[2023-07-27 11:10] LABS: Hemoglobin A1c 4.9 % (3.8-5.6)
[2023-07-27 11:42] LABS: NATERA MAILED SPECIMEN
[2023-07-27 12:16] LABS: HIV - WCH Non-Reactive (Nonreactive); Hepatitis B Surface Antigen Non-Reactive (Nonreactive); Hepatitis C Antibody Non-Reactive (Nonreactive); Rubella IgG Reactive (Nonreactive); Syphilis Antibodies Non-reactive
== END | disposition home or self-care (01) ==
PROVIDERS: PCP Family Medicine; Referring Provider Obstetrics & Gynecology; Visit Provider Obstetrics & Gynecology
DX: Z34.90 Encounter for supervision of normal pregnancy, unspecified, unspecified trimester (principal)
CPT/HCPCS: 36415; 83036; 85025; 86703; 86762; 86780; 86803; 86850; 86900; 86901; 87340

== ENCOUNTER → 2023-12-09 | Outpatient (CLI) | payer OTHER, SELFPAY ==
[2023-12-09 09:48] LABS: Absolute Lymphocyte Count 1.98 X10^3/uL (0.83-4.51); Absolute Neutrophil Count 10.2 X10^3/uL (2.0-7.7); Basophil# 0.05 X10^3/uL; Basophil% 0.4 % (0-1); Eosinophil# 0.31 X10^3/uL; Eosinophils% 2.3 % (0-5); Hematocrit 32.4 % (37-47); Hemoglobin 10.8 g/dL (12.0-15.0); Lymphocyte # 1.98 X10^3/ul (0.83-4.51); Lymphocyte % 14.6 % (19-41); Mean Corp Hgb Conc 33.3 g/dL (32-36); Mean Corpuscular Hgb 31.1 pg (27.0-32.0); Mean Corpuscular Volume 93.4 fL (81-99); Mean Platelet Vol. 10.4 fl (6.2-12.0); Monocyte# 0.78 X10^3/uL; Monocyte% 5.8 % (0-10); NRBC Flagged by Analyzer 0 % (0-5); Neutrophil # 10.24 X10^3/uL (2.7-7.7); Neutrophil % 75.5 % (47-70); Platelet Count 202 K/mm3 (150-450); RBC Distribution Width SD 43.9 fl (35.1-43.9); Red Blood Count 3.47 M/mm3 (4.2-5.4); White Blood Count 13.6 K/mm3 (4.4-11.0)
[2023-12-09 10:00] LABS: Glucose Challenge Gest 1H 50g 108 mg/dL (70-140)
[2023-12-09 10:52] LABS: HIV - WCH Non-Reactive (Nonreactive); Syphilis Antibodies Non-reactive
== END | disposition home or self-care (01) ==
LOC: PAVLAB 09:16
PROVIDERS: PCP Family Medicine; Referring Provider Obstetrics & Gynecology; Visit Provider Obstetrics & Gynecology
DX: O09.90 Supervision of high risk pregnancy, unspecified, unspecified trimester (principal); Z3A.00 Weeks of gestation of pregnancy not specified
CPT/HCPCS: 36415; 82950; 85025; 86703; 86780

== ENCOUNTER 2024-01-20 21:00 | Outpatient (CLI) | payer OTHER, SELFPAY ==
[2024-01-20 21:11] VITALS: BP 123/69; PULSE 83; RESP 16; TEMP 36.1
[2024-01-20 21:21] VITALS: BMI 35.4
--- NOTE | 2024-01-20 21:28 | OB.TRI.HP_ITS ---
HPI - General HPI Narrative ANNA PAYAN, is a 28 y/o @ 35 weeks 5 days who presents to L&D with decreased movement all day. She states that as soon as she got to the unit she started feeling movement though and is now reassured by a reactive NST. Maternal Data Information TESFAYE Calculator Estimated Delivery Date Method Current WG Current Estimate 02/19/24 LMP (Certain) 35w 5d PFSH PFS Medical History Chlamydia History of miscarriage, currently Missed Polyp of both nasal cavities Hypertrophy of both inferior nasal turbinates Nasal septal deviation Chronic pansinusitis COVID-19 Wears contact lenses Anxiety Alcohol use Migraine headache Injury of head and neck Non-smoker Asthma History of echocardiogram Home Medications ?Medication ?Instructions ?Recorded ?Last Taken ?Type cetirizine 10 mg capsule (Zyrtec) 10 mg PO DAILY 08/20/18 01/20/24 History citalopram 20 mg tablet (Celexa) 20 mg PO DAILY 03/26/23 01/20/24 History multivit-min no.71-iron fum 28 1 cap PO 07/03/23 Unknown History mg-folate no.1 1 mg-dha 300 mg capsule (PNV-Newton) ferrous sulfate 325 mg (65 mg 325 mg PO DAILY 01/20/24 Unknown History iron) tablet (iron) Allergy/AdvReac Type Severity Reaction Status Date / Time Cephalosporins Allergy Rash Verified 01/20/24 21:19 diphenhydramine (From Allergy Other Verified 01/20/24 21:19 Benadryl) Sulfa (Sulfonamide Allergy Rash Verified 01/20/24 21:19 Antibiotics) peanut (peanuts) AdvReac other Verified 01/20/24 21:19 Family History Grandfather Heart disease Hypertension Father Hypertension Mother Endometriosis Surgical History History of dilatation and curettage Hx of colonoscopy Hx of hand surgery H/O nasal septoplasty Social History adopted: No household members: spouse current occupational status: employed 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 pets and animals: Yes (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) pets and animals: cat(s) and dog(s) history of recent travel: Yes (- January) out of state: Yes out of country: Yes sexually active: Yes Smoking Status: Never smoker alcohol intake: current alcohol intake frequency: holidays/special occasions only details: not while substance use type: does not use well-balanced diet: daily or most days caffeine: Yes Type: coffee Number of servings: 1 eating out: 1-3 times/week during the past year weight has: remained stable what type of physical activity do you participate in: bicycling and weight training frequency: 1-2 times per week duration: 15-30 minutes/day roland/anabaptist: Muslim seatbelt use: always do you feel safe at home: Yes additional social history: - Eben- Education History 2 Elective abortions Hx Para 0 Spontaneous abortions 1 Hx # Term Pregnancies Ectopic pregnancies Hx # Pregnancies Multiple births # of living children 0 Past Pregnancies Del. Date Name GA/Weeks Outcome Route Bth Weight Infant Gen Labor Lgth Anesthesia Del Locat Provider FOB 04/02/23 miscarriage at 8 weeks Visit Details Expected Delivery Route/Plan Labor Preferences- CB/BF classes: complete labor support person: Eben labor intervention preferences: [] pain management options preferred: epidural cut cord/dad catch: cord : yes PP control planned: discussed discussed possible routes of delivery and associated risks: [] special requests: [] Plans Covid status:discussed Flu vaccine: decline Tdap vaccine: given Rhogam: NA LARC form signed: yes Problem list reviewed and updated with the most current plan of care details and appropriate orders placed. Relevant counseling for the gestational age provided. Continue routine care and follow up unless otherwise noted in visit notes/problem list details OB Flowsheet Initial Weight: Not Recorded Date -?-?-?-?-?-?-?-?-?-?-?-?- EGA Weight BP Urine Prot -?-?-?-?-?-?-?-?-?-?-?-?- Glucose FHR FuHt Pres Dilation -?-?-?-?-?-?-?-?-?-?-?-?- Effaced St Visit Note 07/08/23 -?-?-?-?-?-?-?-?--?-?-?-?- 7w 5d 193 lb 4 oz 122/77 -?-?-?-?-?-?-?-?-?-?-?-?- 145 -?-?-?-?-?-?-?-?-?-?-?-?- JV- CRL consiste nt with LMP. will do NIPT and carrier testing. will give box kit when comes back for next visit. 07/27/23 -?-?-?-?-?-?-?-?-?-?-?-?- 10w 3d 191 lb 120/83 Negative -?-?-?-?-?-?-?-?-?-?-?-?- Negative 171 -?-?-?-?-?-?-?-?-?-?-?-?- JV- CRL measurin g appropriate today. Valerie working for nausea. NIPT ordered for today. 09/02/23 -?-?-?-?-?-?-?-?-?--?-?-?- 15w 5d 184 lb 8 oz 116/69 Nega tive -?-?-?-?-?-?-?-?-?-?-?-?- Negative 156 -?-?-?-?-?-?-?-?-?-?-?-?- JV- no cramping or spotting. normal NIPT. GIRL! 10/07/23 -?-?-?-?-?-?-?-?-?-?-?-?- 20w 5d 196 lb 110/73 Negative -?-?-?-?-?-?-?-?-?-?-?-?- Negative 146 -?-?-?-?-?-?-?--?-?-?-?-?- JV- no lof, vagi nal bleeding, or cramping. having a girl Snow carmen 11/04/23 -?-?-?-?-?-?-?-?-?-?-?-?- 24w 5d 199 lb 8 oz 103/65 Nega tive -?-?-?-?-?-?-?-?-?-?-?-?- Negative 145 -?-?-?-?-?-?-?-?-?-?-?-?- JV-GCT ordered. no concerns. bedside scan done today to learn on machine and weight is 1 lb 8 oz 12/09/23 -?-?-?-?-?-?-?-?-?-?-?-?- 29w 5d 205 lb 2 oz 114/62 Nega tive -?-?-?-?-?-?-?-?-?-?-?-?- Negative 136 30 -?-?-?-?-?-?-?-?-?-?-?-?- MH-No VB, LOF. G ood FM. Add Fe daily. Normal glucose. Larc. Tdap given 12/22/23 -?-?-?-?-?-?-?-?-?-?-?-?- 31w 4d 209 lb 116/73 Negative -?-?-?-?-?-?--?-?-?-?-?-?- Negative 135 32 -?-?-?-?-?-?-?-?-?-?-?-?- KW- no vb/lof/ct x. good fm. doing well 01/06/24 -?-?-?-?-?-?-?-?-?-?-?-?- 33w 5d 209 lb 99/53 Negative -?-?-?-?-?-?-?-?-?-?-?-?- Negative 145 33 -?-?-?-?-?-?-?-?-?-?-?-?- JV- dealing with an ongoing sinus infection. can't get in with ENT for 3 weeks ROS Constitutional Constitutional: Reports systems reviewed and no addt'l complaints, except as documented Gastrointestinal Gastrointestinal: Denies bloating, constipation, cramping, diarrhea, nausea or vomiting Genitourinary Genitourinary: Reports other Details: Denies vaginal odor, vaginal bleeding, or vaginal discharge ; Denies difficulty urinating or flank pain Physical Exam HEENT normocephalic Resp normal respiratory effort and normal air movement no CVA tenderness Extremity normal to inspection General Extremity: edema bilateral (trace ) NST FHR Rate Baby A Baseline: 140 Variability:: Moderate Accelerations:: 15 x 15 Decelerations:: None NST Reactive:: Yes FHR Category:: Category I Assessment & Plan (1) Decreased movement: COMMENT: NST reactive 01/20/24 PLAN: pt reassured. ok for dc to home (2) Anxiety: COMMENT: celexa, stable (3) Anemia in preg-unspec: QUALIFIERS: Trimester: third trimester Qualified Code(s): O99.013 - Anemia complicating , third trimester COMMENT: mild, start FE. Recheck 4 wk (4) Obesity affecting : QUALIFIERS: Trimester: third trimester Obesity type affecting : unspecified obesity Qualified Code(s): O99.213 - Obesity complicating , third trimester COMMENT: HgbA1c ordered at NOB (5) : QUALIFIERS: Weeks of gestation: 33 weeks Qualified Code(s): Z3A.33 - 33 weeks gestation of COMMENT: nl anatomy, NIPT low risk, carrier neg. 11/25 (6) Supervision of high-risk : QUALIFIERS: Trimester: third trimester Qualified Code(s): O09.93 - Supervision of high risk , unspecified, third trimester COMMENT: PRR, , TESFAYE 02/18/23, Girl Snow Carmen Eben (7) HPV in female: (8) History of miscarriage, currently : (9) LGSIL of cervix of undetermined significance: COMMENT: 08/2021 Charges/Coding Multi Select Codes Visit Charges Office Visit/Consults: 70402 OV L3 Est 20min Urinary/Genital Urinary/Genital CPT Codes: 52499-48 non-stress test Interp
== END 2024-01-20 21:39 | disposition home or self-care (01) ==
LOC: WPOUT 21:02 → WP 21:03
PROVIDERS: Referring Provider Obstetrics & Gynecology; Visit Provider Obstetrics & Gynecology
DX: O36.8190 Decreased fetal movements, unspecified trimester, not applicable or unspecified (principal); O99.343 Other mental disorders complicating pregnancy, third trimester; F41.9 Anxiety disorder, unspecified; Z3A.35 35 weeks gestation of pregnancy; O99.013 Anemia complicating pregnancy, third trimester; O99.213 Obesity complicating pregnancy, third trimester
CPT/HCPCS: 59025; 59050; 99221; G0378

== ENCOUNTER → 2024-01-22 | Outpatient (CLI) | payer OTHER, SELFPAY | END | disposition home or self-care (01) | LOC: LAB 16:19 | PROVIDERS: Referring Provider Otolaryngology; Visit Provider Otolaryngology | DX: J32.9 Chronic sinusitis, unspecified (principal) | CPT/HCPCS: 87070; 87077; 87186; 87205 ==

== ENCOUNTER → 2024-02-01 | Outpatient (CLI) | payer OTHER, SELFPAY | END | disposition home or self-care (01) | LOC: LABSPEC 14:23 | PROVIDERS: Referring Provider Advanced Practice Midwife; Visit Provider Advanced Practice Midwife | DX: O09.93 Supervision of high risk pregnancy, unspecified, third trimester (principal); Z3A.00 Weeks of gestation of pregnancy not specified | CPT/HCPCS: 87077; 87081; 87186 ==

== ENCOUNTER 2024-02-18 17:05 | Inpatient (IN) | payer OTHER, SELFPAY ==
[2024-02-18] VITALS (7 sets, daily range): BP systolic 111–122; BP diastolic 71–78; PULSE 80–91; RESP 16; TEMP 36.3–36.6; O2SAT 98–99; BMI 30.2
[2024-02-18 17:03] LABS: ROM Internal Control Test YES-OK TO RESULT pt. (Internal QC)
[2024-02-18 17:04] LABS: ROM Patient Test POSITIVE (Negative); Record Kit Lot#, ROM+ K1866
[2024-02-18 18:24] LABS: Absolute Lymphocyte Count 2.73 X10^3/uL (0.83-4.51); Absolute Neutrophil Count 9.1 X10^3/uL (2.0-7.7); Basophil# 0.05 X10^3/uL; Basophil% 0.4 % (0-1); Eosinophil# 0.15 X10^3/uL; Eosinophils% 1.2 % (0-5); Hematocrit 36.5 % (37-47); Hemoglobin 12.4 g/dL (12.0-15.0); Lymphocyte # 2.73 X10^3/ul (0.83-4.51); Mean Corpuscular Hgb 31.5 pg (27.0-32.0); Mean Corpuscular Volume 92.6 fL (81-99); Mean Platelet Vol. 11.9 fl (6.2-12.0); Monocyte# 0.87 X10^3/uL; Monocyte% 6.7 % (0-10); NRBC Flagged by Analyzer 0 % (0-5); Neutrophil # 9.12 X10^3/uL (2.7-7.7); Neutrophil % 69.9 % (47-70); Platelet Count 212 K/mm3 (150-450); RBC Distribution Width CV 13.6 % (11.6-14.6); RBC Distribution Width SD 45.8 fl (35.1-43.9); Red Blood Count 3.94 M/mm3 (4.2-5.4)
[2024-02-18] MEDS: miSOPROStol 25 MCG TABLET PO (18:38)
[2024-02-18 19:05] LABS: Syphilis Antibodies Non-reactive
--- NOTE | 2024-02-18 21:35 | HP.PCM.OB_ITS ---
HPI - General General Date of Admission: 02/18/24 HPI Narrative ANNA PAYAN, is a 28 y/o @ 39 weeks 6 days who presents to L&D with leaking fluid and positive ROM+. She states that she is starting to feel some contractions. She denies vaginal bleeding or decreased movement. The Nurse reports that her cervix is closed. Maternal Data Information TESFAYE Calculator Estimated Delivery Date Method Current WG Current Estimate 02/19/24 LMP (Certain) 39w 6d PFSH PFSH Medical History Chlamydia History of miscarriage, currently Missed Polyp of both nasal cavities Hypertrophy of both inferior nasal turbinates Nasal septal deviation Chronic pansinusitis COVID-19 Wears contact lenses Anxiety Alcohol use Migraine headache Injury of head and neck Non-smoker Asthma History of echocardiogram Home Medications ?Medication ?Instructions ?Recorded ?Last Taken ?Type cetirizine 10 mg capsule (Zyrtec) 10 mg PO DAILY 08/20/18 01/20/24 History citalopram 20 mg tablet (Celexa) 20 mg PO DAILY 03/26/23 01/20/24 History multivit-min no.71-iron fum 28 1 cap PO 07/03/23 Unknown History mg-folate no.1 1 mg-dha 300 mg capsule ([facility]V-[place]) ferrous sulfate 325 mg (65 mg 325 mg PO DAILY 01/20/24 Unknown History iron) tablet (iron) amoxicillin 500 mg capsule 875 mg PO BID 02/11/24 Unknown History Allergy/AdvReac Type Severity Reaction Status Date / Time Cephalosporins Allergy Rash Verified 02/11/24 10:50 diphenhydramine (From Allergy Other Verified 02/11/24 10:50 Benadryl) Sulfa (Sulfonamide Allergy Rash Verified 02/11/24 10:50 Antibiotics) peanut (peanuts) AdvReac other Verified 02/11/24 10:50 Family History Grandfather Heart disease Hypertension Father Hypertension Mother Endometriosis Surgical History History of dilatation and curettage Hx of colonoscopy Hx of hand surgery H/O nasal septoplasty Social History adopted: No household members: spouse current occupational status: employed 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 pets and animals: Yes (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) pets and animals: cat(s) and dog(s) history of recent travel: Yes (- January) out of state: Yes out of country: Yes sexually active: Yes Smoking Status: Never smoker alcohol intake: current alcohol intake frequency: holidays/special occasions only details: not while substance use type: does not use well-balanced diet: daily or most days caffeine: Yes Type: coffee Number of servings: 1 eating out: 1-3 times/week during the past year weight has: remained stable what type of physical activity do you participate in: bicycling and weight training frequency: 1-2 times per week duration: 15-30 minutes/day roland/samaritan: Sikh seatbelt use: always do you feel safe at home: Yes additional social history: - Eben- Education History 2 Elective abortions Hx Para 0 Spontaneous abortions 1 Hx # Term Pregnancies Ectopic pregnancies Hx # Pregnancies Multiple births # of living children 0 Past Pregnancies Del. Date Name GA/Weeks Outcome Route Bth Weight Gen Labor Lgth Anesthesia Del Locatn Provider FOB 04/02/23 miscarriage at 8 weeks Visit Details Expected Delivery Route/Plan Labor Preferences- CB/BF classes: complete labor support person: Eben labor intervention preferences: [] pain management options preferred: epidural cut cord/dad catch: cord : yes PP control planned: discussed discussed possible routes of delivery and associated risks: [] special requests: [] Plans Covid status:discussed Flu vaccine: decline Tdap vaccine: given Rhogam: NA LARC form signed: yes Problem list reviewed and updated with the most current plan of care details and appropriate orders placed. Relevant counseling for the gestational age provided. Continue routine care and follow up unless otherwise noted in visit notes/problem list details OB Flowsheet Initial Weight: Not Recorded Date -?-?-?-?-?-?-?-?-?-?-?-?- EGA Weight BP Urine Prot -?-?-?-?-?-?-?-?-?-?-?-?- Glucose FHR FuHt Pres Dilation -?-?-?-?-?-?-?-?-?-?-?-?- Effaced St Visit Note 07/08/23 -?-?-?-?-?-?-?-?-?-?-?-?- 7w 5d 193 lb 4 oz 122/77 -?-?-?-?-?-?-?-?-?-?-?-?- 145 -?-?-?-?-?-?-?-?-?-?-?-?- JV- CRL consiste nt with LMP. will do NIPT and carrier testing. will give box kit when comes back for next visit. 07/27/23 -?-?-?-?-?-?-?-?-?-?-?-?- 10w 3d 191 lb 120/83 Negative -?-?-?-?-?-?-?-?-?-?-?-?- Negative 171 -?-?-?-?-?-?-?-?-?-?-?-?- JV- CRL measurin g appropriate today. Valerie working for nausea. NIPT ordered for today. 09/02/23 -?-?-?-?-?-?-?-?-?-?-?-?- 15w 5d 184 lb 8 oz 116/69 Nega tive -?-?-?-?-?-?-?-?-?-?-?-?- Negative 156 -?-?-?-?-?-?-?-?-?-?-?-?- JV- no cramping or spotting. normal NIPT. GIRL! 10/07/23 -?-?-?-?-?-?-?-?-?-?-?-?- 20w 5d 196 lb 110/73 Negative -?-?-?-?-?-?-?-?-?-?-?-?- Negative 146 -?-?-?-?-?-?-?-?-?-?-?-?- JV- no lof, vagi nal bleeding, or cramping. having a girl Snow carmen 11/04/23 -?-?-?-?-?-?-?-?-?-?-?-?- 24w 5d 199 lb 8 oz 103/65 Nega tive -?-?-?-?-?-?-?-?-?-?-?-?- Negative 145 -?-?-?-?-?-?-?-?-?-?-?-?- JV-GCT ordered. no concerns. bedside scan done today to learn on machine and weight is 1 lb 8 oz 12/09/23 -?-?-?-?-?-?-?-?-?-?-?-?- 29w 5d 205 lb 2 oz 114/62 Nega tive -?-?-?-?-?-?-?-?-?-?-?-?- Negative 136 30 -?-?-?-?-?-?-?-?-?-?-?-?- MH-No VB, LOF. G ood FM. Add Fe daily. Normal glucose. Larc. Tdap given 12/22/23 -?-?-?-?-?-?-?-?-?-?-?-?- 31w 4d 209 lb 116/73 Negative -?-?-?-?-?-?-?-?-?-?-?-?- Negative 135 32 -?-?-?-?-?-?-?-?-?-?-?-?- KW- no vb/lof/ct x. good fm. doing well 01/06/24 -?-?-?-?-?-?-?-?-?-?-?-?- 33w 5d 209 lb 99/53 Negative -?-?-?-?-?-?-?-?-?-?-?-?- Negative 145 33 -?-?-?-?-?-?-?-?-?-?-?-?- JV- dealing with an ongoing sinus infection. can't get in with ENT for 3 weeks 01/21/24 -?-?-?-?-?-?-?-?-?-?-?-?- 35w 6d 211 lb 211 lb 111/75 Negative -?-?-?-?-?-?-?-?-?-?-?-?- Negative 140 36 -?-?--?-?-?-?-?-?-?-?-?-?- SM- no vb lof go od fm no regular ctx 02/01/24 -?-?-?-?-?-?-?-?-?-?-?-?- 37w 3d 215 lb 115/72 Negative -?-?-?-?-?-?-?-?-?-?-?-?- Negative 140 37 Cephalic 0 -?-?-?-?-?-?-?-?-?-?-?-?- KW- no vb/lof/ct x. good fm. GBS today 02/11/24 -?-?-?-?-?-?-?-?-?-?-?-?- 38w 6d 214 lb 8 oz 111/70 Nega tive -?-?-?-?-?-?-?-?-?-?-?-?- Negative 144 38 Cephalic 0 -?-?-?-?-?-?-?-?-?-?-?-?- JV- still has si nus infection. needs to see ENT after delivery. vtx on ultraound. no lof, vaginal bleeding, or dec fm. ROS Constitutional Constitutional: Denies change in weight, fatigue, fever(s), headache(s), poor appetite or weakness Eyes Eyes: Denies blurry vision, change in vision, seeing flashes or spots in vision ENT HEENT: Denies dizziness, headache(s), loss taste/smell or sore throat Cardiovascular Cardiovascular: Denies chest pain, dizziness, dyspnea, irregular heart rhythm, leg edema, palpitations, rapid heart rate or vomiting Respiratory/Chest Respiratory/Chest: Denies chest tightness, cough, dyspnea or breast pain Gastrointestinal Gastrointestinal: Denies abdominal pain, anorexia, constipation, cramping, diarrhea, hemorrhoids, vomiting or weight changes Genitourinary Genitourinary: Denies dysuria, flank pain, genital lesions, genital pain, u rinary frequency or urinary urgency Musculoskeletal Musculoskeletal: Denies back pain, difficulty walking, joint pain, limited range of motion, muscle cramps or numbness Integumentary Integumentary: Denies lesions or unusual bruising Neurologic Neurologic: Denies abnormal movements, abnormal speech, dizziness, numbness, seizure-like activity or syncope Psychiatric Psychiatric: Denies anxiety, behavioral changes, change in appetite, change in libido, cognitive impairment, confusion, depression, difficulty concentrating, hallucinations or suicidal thoughts Endocrine Endocrinology: Denies excessive sweating, polydipsia or polyuria Hematologic/Lymphatic Hematologic/Lymphatic: Denies easy bleeding, easy bruising or lymphadenopathy Allergic/Immunologic Allergic/Immunologic: Denies itchy eyes, lip swelling, seasonal rhinorrhea, rhinitis, throat swelling, tongue swelling, eczemia, wheezing or asthma Vital Signs Vital Signs Vital Signs: 02/18/24 16:45 02/18/24 16:45 02/18/24 18:35 Temperature Temperature Source Pulse Rate 91 Respiratory Rate Blood Pressure 122/78 H 114/73 BP Systolic 122 114 BP Diastolic 78 73 Pulse Ox 02/18/24 18:35 02/18/24 18:36 02/18/24 18:36 Temperature 97.3 F L Temperature Source Temporal Pulse Rate 90 Respiratory Rate Blood Pressure BP Systolic BP Diastolic Pulse Ox 02/18/24 19:21 02/18/24 19:21 02/18/24 19:21 Temperature Temperature Source Temporal Pulse Rate 87 Respiratory Rate Blood Pressure 116/71 BP Systolic 116 BP Diastolic 71 Pulse Ox 02/18/24 19:21 02/18/24 19:21 02/18/24 19:22 Temperature 97.9 F Temperature Source Pulse Rate Respiratory Rate 16 Blood Pressure BP Systolic BP Diastolic Pulse Ox 98 Weight Weight: 182 lb Body Mass Index (BMI) 30.2 Physical Exam Const alert, oriented x3, no apparent distress and healthy appearing General Appearance: cooperative; Negative for anxious HEENT normocephalic Face and Sinus: normal facial exam Eyes EOMs intact bilaterally and no scleral icterus General Eye: normal appearance of both eyes Neck full ROM and supple Lymph Lymphatic: no lymphadenopathy noted Chest Chest: abnormal inspection of the chest Resp normal respiratory effort Effort and Inspection: able to speak in complete sentences Cardio regular rate GI soft to palpation and non-tender Inspection: gravid Palpation: soft; Negative for tender external exam normal Amniotic Fluid: ROM+plus Back/Spine no CVA tenderness Extremity normal to inspection, full ROM and no clubbing, cyanosis or edema General Extremity: Negative for calf tenderness or edema Skin Lesions: no lesions Rashes: no rashes Psych mental status grossly normal Labs Labs Labs: Blood Type A POSITIVE Antibody Screen NEGATIVE Hct 36.5 % (37-47) L Hgb 12.4 g/dL (12.0-15.0) Obstetrics Ultrasound Syphilis Total Ab Non-reactive Rubella IgG Antibody Reactive (Nonreactive) Hep Bs Antigen Non-Reactive (Nonreactive) Hepatitis C Antibody Non-Reactive (Nonreactive) Chlamydia DNA (ALFREDA) Negative (Negative) N.gonorrhoeae DNA (ALFREDA) Negative (Negative) HIV 1&2 Antibody Non-Reactive (Nonreactive) Glucose 1 Hr 50 gm 108 mg/dL (70-140) Assessment & Plan (1) Positive GBS test: COMMENT: treat in labor (2) Anxiety: COMMENT: celexa, stable (3) Anemia in preg-unspec: QUALIFIERS: Trimester: third trimester Qualified Code(s): O99.013 - Anemia complicating , third trimester COMMENT: mild, start FE. Recheck 4 wk (4) Obesity affecting : QUALIFIERS: Trimester: third trimester Obesity type affecting : unspecified obesity Qualified Code(s): O99.213 - Obesity complicating , third trimester COMMENT: HgbA1c ordered at NOB (5) : QUALIFIERS: Weeks of gestation: 38 weeks Qualified Code(s): Z3A.38 - 38 weeks gestation of COMMENT: nl anatomy, NIPT low risk, carrier neg. 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 Pain management: plans epidural. GBS positive plan IV PCN. Management of any complications: none I have reviewed the [facility] and made any clinically relevant updates.
[2024-02-18] MEDS: Lactated Ringers 1,000 ML 50 ML IV (22:38)
[2024-02-18] MEDS: Penicillin G Pot 5,000,000 UNITS in 0.9% Normal Saline (100mL MB+) 100 ML 150 UNITS IV (22:39)
[2024-02-18] MEDS: Lactated Ringers 1,000 ML 999 ML IV (23:00)
[2024-02-19] VITALS (52 sets, daily range): BP systolic 90–133; BP diastolic 50–76; PULSE 62–101; RESP 15–17; TEMP 36.1–37.3; O2SAT 83–100
[2024-02-19] MEDS: fentaNYL-bupivacaine (epidural) 100 ML BAG EPIDURAL ×5 (00:18→23:32)
[2024-02-19] MEDS: Lactated Ringers 1,000 ML 200 ML IV ×4 (00:33→13:19)
[2024-02-19] MEDS: Penicillin G 3,000,000 Units 50 ML 100 UNITS IV ×6 (02:53→23:25)
[2024-02-19] MEDS: 0.9% Saline Lock 10 ML Syringe IV ×2 (04:32→20:14)
[2024-02-19] MEDS: Ondansetron 4 MG/2 ML Vial IV ×4 (04:35→20:14)
[2024-02-19] MEDS: Oxytocin 15 Units/NS 250ml 15 UNITS/250 ML IV.SOLN 2 UNITS IV (06:05)
[2024-02-19] MEDS: Citalopram 20 MG Tablet PO (11:07)
--- NOTE | 2024-02-19 13:18 | PCM.PN.BLA ---
Progress Note cat I tracing still 5 cm now on 14 mU pit, maybe OP, will try different positions, IUPC placed. reviewed with nursing. /
[2024-02-19] MEDS: Lactated Ringers 1,000 ML 100 ML IV (19:06)
[2024-02-19] MEDS: Oxytocin 15 Units/NS 250ml 15 UNITS/250 ML IV.SOLN 24 UNITS IV (23:35)
[2024-02-20] VITALS (20 sets, daily range): BP systolic 88–126; BP diastolic 52–83; PULSE 67–99; RESP 12–19; TEMP 35.7–36.6; O2SAT 95–100
[2024-02-20] MEDS: 0.9% Saline Lock 10 ML Syringe IV ×4 (00:47→12:19)
[2024-02-20] MEDS: Amnioinfusion- 0.9% NS 1,000 ML IV.SOLN. 1000 ML INTRA-UTER (00:48)
--- NOTE | 2024-02-20 02:19 | PCM.PN.BLA ---
Progress Note patient has been pushing for over 3 hours, still +1 to +2 station no significant descent with excellent maternal effort. cat I tracing, reviewed with patient option of continuing to push for another hour but I do not feel her pelvis is adequate, she has a very narrow outlet. patient requesting to proceed with csection now and I feel this is very reasonable. will recommend pillow due to swelling caput and station.
[2024-02-20] MEDS: Sodium Citrate/Citric Acid 30 ML UDC PO (02:49)
[2024-02-20] MEDS: Acetaminophen 500 MG Tablet PO (02:49)
[2024-02-20] MEDS: Clindamycin 900 MG/50 ML BAG 75 MG IV (03:43)
[2024-02-20] MEDS: Lactated Ringers 1,000 ML 100 ML IV ×2 (03:50→07:36)
[2024-02-20] MEDS: Gentamicin IV 290 MG in Dextrose 5%-Water (50mL Bag) 50 ML 100 MG IVPB (04:21)
--- NOTE | 2024-02-20 04:42 | EX.PCM.OBRPT ---
Assessment & Plan (1) delivery delivered: Maternal Data Information TESFAYE Calculator Estimated Delivery Date Method Current WG Current Estimate 02/19/24 LMP (Certain) 40w 1d Final TESFAYE Source: LMP Gestational age: 39 Details Operative Information Date of Procedure: 02/20/24 Pre-Operative Diagnosis: see a/p diagnoses Post-Operative Diagnosis: same Indications Narrative: surgeon: Sandi Longo MD Procedure Type: low transverse telephone ad taker #1: Nilesh Jean Type of Anesthesia: Epidural Special Medications: none Drain: Shah to straight drain Estimated Blood Loss: 800 Fluids Replaced: crystalloid Procedure Start Time: 04:02 Procedure Stop Time: 04:36 Findings Description of Procedure: pillow placed. The patient was placed in the dorsal supine position with leftward tilt. Patient was prepped and draped in the normal sterile fashion. Pfannenstiel skin incision was made with the scalpel and carried through to the underlying layer of fascia with the scalpel. Fascia was nicked in the midline and the incision extended laterally. The rectus bellies were dissected off superiorly and inferiorly with out complication both sharply and bluntly. The peritoneum was entered digitally. The incision was stretched and a low transverse uterine incision was made with the scalpel. The 's head was delivered atraumatically followed by the anterior and posterior shoulders without complication the rest of the delivered. The cord was clamped and cut and the infant was handed off to awaiting nurse. The placenta was delivered spontaneously immediately following and was noted to be intact and have a three-vessel cord. The uterus was exteriorized cleared of all clots and debris, and the incision was closed in a single layer closure using #1 Monocryl. The ovaries and fallopian tubes were noted to be within normal limits. emmanuel place don incision for hemostasis. The uterus was returned to the maternal abdomen. Fascia was closed with 0 PDS in a running fashion. Subcutaneous tissue was copiously irrigated and the skin was closed with 3-0 Monocryl in a subcuticular fashion. Mepilex dressing was applied without complication. Patient was taken to recovery in stable condition. It was discussed with the patient that based on the clinical information obtained during this encounter, combined with her history, at this time I would recommend cesareans for future deliveries if further pregnancies are desired. Placental Delivery Description: Spontaneous Placenta Disposition: [facility] Cord Vessel Description: 3 Vessels Delayed Cord Clamping: Yes Complications Risks of Surgery Discussed w/Patient: Bleeding, Infection, Need for Future C-Sections and Injury to surrounding structure(s) including bowel and bladder Complications: none Admit VTE Documentation VTE Present on Admission: No VTE Mechan Device Prophylaxis: SCD's Procedures Urinary/Genital [id number]: [id number] [facility]
[2024-02-20] MEDS: Oxytocin 15 Units/NS 250ml 15 UNITS/250 ML IV.SOLN 83 UNITS IV (04:50)
[2024-02-20] MEDS: Ondansetron 4 MG/2 ML Vial IV (05:00)
[2024-02-20] MEDS: Ketorolac 30 MG/ML Syringe IV ×2 (05:34→12:19)
--- NOTE | 2024-02-20 07:02 | PCM.DC ---
Discharge Instructions Diet Discharge Diet: No restrictions Activity Discharge Activity: May Not Drive (for 2 weeks or while taking narcotic pain medications.), May Shower and May Take a Tub Bath (in 7 days) May shower in (days): 0 May resume sexual activity in: 4-6 weeks Weight Bearing Status: Full weight bearing Lifting Restrictions: 20 pounds Dressing / Incision Call your doctor if your incision/area has: Continuous Slow Oozing, Sudden Increased Bleeding, Increased Pain/ Swelling, Increased Redness and Foul Smelling Discharge Call your doctor if you observe: Fever of 101 or Higher and Using more than 1 pad per hour (for 2 hours) Suture Line Care: Avoid Pulling/Pushing and Avoid Pinching/Bending Cleanse incision/area with: Soap & Water and Keep Dressing Clean & Dry Follow Up Care Please Follow Up With: Sandi Longo MD When: Call [phone] to make an appointment for an incision check in 1-2 weeks. Test Results: Test results from this visit will be discussed in further detail at your follow-up appointment, if applicable. Discharge Plan Admission Admit Date/Time: 02/18/24 17:05 Attending Provider: Sandi Longo Primary Care Provider: Care Physician,Dacia Primary Discharge Orders/Prescriptions Prescriptions: New oxycodone-acetaminophen [Percocet] 5-325 mg tablet 1 tab PO Q6H PRN (Reason: pain) 7 Days Qty: 20 0RF naproxen 500 mg tablet 500 mg PO BID PRN PRN (Reason: Pain) Qty: 30 1RF No Action citalopram [Celexa] 20 mg tablet 20 mg PO DAILY PNV-[place] 28-1-300 mg capsule 1 cap PO amoxicillin 500 mg capsule 875 mg PO BID Zyrtec 10 MG capsule 10 mg PO DAILY ferrous sulfate [iron] 325 mg (65 mg iron) tablet 325 mg PO DAILY Referrals / Follow Up: Care Physician,Dacia Primary [Primary Care Provider] - Disposition Disposition (needs filled in before D/C Order can be placed): Home, Self Care
[2024-02-20] MEDS: Acetaminophen 500 MG Tablet 1000 MG PO ×3 (09:09→18:15)
[2024-02-20] MEDS: Citalopram 20 MG Tablet PO (09:09)
[2024-02-20] MEDS: Senna/Docusate Sodium 1 Tablet PO (09:09)
--- NOTE | 2024-02-20 09:43 | CASEMGMT ---
Social Work Assessment Labor and Delivery Unit Date of Referral: 02/20/24 Referred by: Dr. Longo Date/Time of intervention: 02/20/24, 9:15am Reason for referral: history of anxiety, on Celexa History obtained from: MOB and FOB Household composition: MOB and FOB, and now baby Snow. MOB and FOB have been together for 3 years, one year Parent/Guardian Status: MOB and FOB are guardians of this baby Medical History: MOB: Hx of Anemia, anxiety, Asthma, HPV. Baby: Born 02/20/24, early this morning via . Weight 8 lb 2 oz, Apgars are 8 and 8 at one and five minutes Financial status: No concerns. 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 supplies: They have all needed supplies including diapers, wipes, crib, car seat, clothing, access to bottles and formula if needed. MOB is . Childcare/Caregivers: MOB, FOB, grandparents on both sides. They plan to adjust schedules to care for the baby and may have a grandparent come help once per week when MOB returns to work Transportation: They have 2 vehicles Children's Services/Legal Issues/Programs/Agencies involved: None Behavioral Health Issues: Substance abuse--none reported by FOB or MOB, no tox screens completed on this admission. Mental Health--FOB reports no history. MOB reports anxiety. She has been on Celexa since 2018 and states it is well controlled. She was on Zoloft before that. FRANCESCA has been in counseling in the past, learned coping mechanisms, has not been in counseling recently. MOB reports not to feel the need to be in counseling at this time. Family/Social Stressors: None reported other than MOB's labor was long, she pushed for 3 hours then had a . Support offered Support Systems: MOB and FOB's parents, MOB's aunt and uncle who are local Depression and Anxiety/Shaken Baby/Help Me Grow/Counseling Resources/[facility]/ hotlines: SW gave MOB and FOB information on all of these topics and reviewed the information w/them. SW pointed out in particular signs of PPD and if MOB experiencing, to reach out to PCP or [facility], and consider counseling. MOB states understanding. Assessment: MOB and FOB both appropriate w/SW, answered all questions. MOB holding baby, , very appropriate in care of baby. FOB attentive to MOB and baby. No social service concerns at this time. Plan: Baby to return home w/MOB and FOB. SW remains available should any social service needs arise. LEILANI Chance
[2024-02-20] MEDS: Enoxaparin 40 MG/0.4 ML Syringe SC (18:27)
[2024-02-20] MEDS: Naproxen 500 MG Tablet PO (18:51)
[2024-02-21] MEDS: Naproxen 500 MG Tablet PO ×3 (02:23→17:28)
[2024-02-21 04:37] VITALS: BP 102/59; PULSE 70; RESP 16; TEMP 36.3; O2SAT 100
[2024-02-21 05:22] LABS: Hematocrit 31.2 % (37-47); Hemoglobin 10.3 g/dL (12.0-15.0); Mean Corpuscular Hgb 31.2 pg (27.0-32.0); Mean Corpuscular Volume 94.5 fL (81-99); Mean Platelet Vol. 11.2 fl (6.2-12.0); Platelet Count 187 K/mm3 (150-450); RBC Distribution Width SD 48.6 fl (35.1-43.9); White Blood Count 16.6 K/mm3 (4.4-11.0)
[2024-02-21] MEDS: Acetaminophen 500 MG Tablet 1000 MG PO ×3 (06:12→17:28)
--- NOTE | 2024-02-21 07:01 | PCM.PN.OB ---
Subjective Subjective Patient doing well without complaints. Tolerating PO. Ambulating and voiding without difficulty. feeding well. Denies chest pain, shortness of breath, calf pain/swelling, fevers, chills, lightheadedness. Objective Data Objective Data Vital Signs: Vital Signs Temp Pulse Resp BP Pulse Ox O2 Del Method 97.3 F L 70 16 102/59 L 100 Room Air 02/21/24 04:37 02/21/24 04:37 02/21/24 04:37 02/21/24 04:37 02/21/24 04:37 02/21/24 04:37 Oxygen Delivery Method Room Air Weight: 182 lb Body Mass Index (BMI) 30.2 Intake & Output: Intake and Output for Last 24 Hours 02/19/24 02/20/24 02/21/24 23:59 23:59 23:59 Intake Total 5485.84 / 5485.84 2066.63 / 2066.63 Output Total 2550 / 2550 2650 / 2650 Balance 2935.84 / 2935.84 -583.37 / -583.37 Lab / Micro Data 02/21/24 05:02 Labs: Laboratory Results - last 24 hr 02/21/24 05:02: WBC 16.6 H, RBC 3.30 L, Hgb 10.3 L, Hct 31.2 L, MCV 94.5, MCH 31.2, MCHC 33.0, RDW Std Deviation 48.6 H, RDW Coeff of Sebas 14.0, Plt Count 187, MPV 11.2 ROS Constitutional Constitutional: Reports systems reviewed and no addt'l complaints, except as documented Cardiovascular Cardiovascular: Reports systems reviewed and no addt'l complaints, except as documented Respiratory/Chest Respiratory/Chest: Reports systems reviewed and no addt'l complaints, except as documented Gastrointestinal Gastrointestinal: Reports systems reviewed and no addt'l complaints, except as documented Physical Exam Const alert, oriented x3 and no apparent distress HEENT Head and Scalp: atraumatic Resp normal respiratory effort GI soft to palpation and non-tender Bimanual Exam - Vag & Uterus: uterus non-tender Uterus Palpation: uterus fundus firm (below Umbilicus) Assessment & Plan (1) delivery delivered: COMMENT: LTCS CPD pushed over 3 hours. girl longoria 40 PLAN: Plan s/p LTCS PPD # 1 1. routine post care 2. breast feeding- support given 3. rh positive 4. rubella immune
[2024-02-21 08:15] VITALS: BP 107/71; PULSE 84; RESP 16; TEMP 36.3; O2SAT 97
[2024-02-21] MEDS: Citalopram 20 MG Tablet PO (09:45)
[2024-02-21] MEDS: Senna/Docusate Sodium 1 Tablet PO (09:45)
[2024-02-21 15:12] VITALS: BP 118/66; PULSE 89; RESP 17; TEMP 36.6; O2SAT 99
[2024-02-21] MEDS: Enoxaparin 40 MG/0.4 ML Syringe SC (17:29)
[2024-02-21 19:54] VITALS: BP 113/69; PULSE 79; RESP 16; TEMP 36.3; O2SAT 99
[2024-02-22] MEDS: Naproxen 500 MG Tablet PO ×2 (02:05→09:33)
[2024-02-22 02:06] VITALS: BP 93/53; PULSE 77; RESP 16; TEMP 36.3; O2SAT 97
[2024-02-22] MEDS: Acetaminophen 500 MG Tablet 1000 MG PO ×2 (05:56)
--- NOTE | 2024-02-22 07:32 | PN.OBGYN_ITS ---
Subjective Subjective Patient doing well without complaints. Tolerating PO. Ambulating and voiding without difficulty. Feeding well. Denies chest pain, shortness of breath, calf pain/swelling, fevers, chills, lightheadedness. Objective Data Objective Data Vital Signs: Vital Signs Temp Pulse Resp BP Pulse Ox O2 Del Method 97.4 F L 77 16 93/53 L 97 Room Air 02/22/24 02:06 02/22/24 02:06 02/22/24 02:06 02/22/24 02:06 02/22/24 02:06 02/22/24 02:06 Oxygen Delivery Method Room Air Weight: 182 lb Body Mass Index (BMI) 30.2 Intake & Output: Intake and Output for Last 24 Hours 02/20/24 02/21/24 02/22/24 23:59 23:59 23:59 Intake Total 2066.63 / 2066.63 Output Total 2650 / 2650 Balance -583.37 / -583.37 Lab / Micro Data Attestation: I reviewed the patient's lab results. 02/21/24 05:02 ROS Constitutional Constitutional: Reports systems reviewed and no addt'l complaints, except as documented; Denies anorexia or headache(s) Cardiovascular Cardiovascular: Reports systems reviewed and no addt'l complaints, except as documented; Denies dizziness, dyspnea, nausea or tachypnea Respiratory/Chest Respiratory/Chest: Reports systems reviewed and no addt'l complaints, except as documented; Denies cough, dyspnea, shortness of breath at rest or tachypnea Gastrointestinal Gastrointestinal: Reports systems reviewed and no addt'l complaints, except as documented; Denies abdominal pain, constipation or nausea Genitourinary Genitourinary: Reports systems reviewed and no addt'l complaints, except as documented; Denies burning urination, difficulty urinating, dysuria, urinary frequency or urinary incontinence Musculoskeletal Musculoskeletal: Reports systems reviewed and no addt'l complaints, except as documented Integumentary Integumentary: Reports systems reviewed and no addt'l complaints, except as documented Neurologic Neurologic: Reports systems reviewed and no addt'l complaints, except as documented; Denies abnormal speech, dizziness or headache(s) Psychiatric Psychiatric: Reports systems reviewed and no addt'l complaints, except as documented Endocrine Endocrinology: Reports systems reviewed and no addt'l complaints, except as documented Hematologic/Lymphatic Hematologic/Lymphatic: Reports systems reviewed and no addt'l complaints, except as documented Physical Exam Const alert, oriented x3 and no apparent distress Neck full ROM Resp normal respiratory effort, normal air movement and no retractions Effort and Inspection: able to speak in complete sentences and symmetric chest movement GI soft to palpation Bladder / Kidney Exam: bladder normal to palpation Uterus Palpation: uterus fundus firm Extremity normal to inspection and full ROM Psych mental status grossly normal, thought process normal and cooperative Assessment & Plan (1) delivery delivered: COMMENT: LTCS CPD pushed over 3 hours. girl longoria 39 PLAN: s/p LTCS PPD # 2 1. routine post care 2. breast feeding- support given 3. rh positive 4. rubella immune 5. Discharge Home (2) Positive GBS test: COMMENT: treat in labor (3) Anxiety: COMMENT: celexa, stable (4) Anemia in preg-unspec: QUALIFIERS: Trimester: third trimester Qualified Code(s): O99.013 - Anemia complicating , third trimester COMMENT: mild, start FE. Recheck 4 wk (5) Obesity affecting : QUALIFIERS: Trimester: third trimester Obesity type affecting : unspecified obesity Qualified Code(s): O99.213 - Obesity complicating , third trimester COMMENT: HgbA1c ordered at NOB (6) : QUALIFIERS: Weeks of gestation: 38 weeks Qualified Code(s): Z 3A.38 - 38 weeks gestation of COMMENT: nl anatomy, NIPT low risk, carrier neg. 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
--- NOTE | 2024-02-22 07:36 | PCM.DC.SUM ---
Providers Date of Admission: 02/18/24 Date of Discharge: 02/22/24 Primary Care Physician: No Primary Care Phys Reason For Visit: C SECTION Diagnosis Discharge Diagnosis (1) delivery delivered: Status: Acute Code(s): O82 - Encounter for delivery without indication Plan: s/p LTCS PPD # 2 1. routine post care 2. breast feeding- support given 3. rh positive 4. rubella immune 5. Discharge Home (2) Positive GBS test: Status: Acute Code(s): B95.1 - Streptococcus, group B, as the cause of diseases classified elsewhere (3) Anxiety: Status: Acute Code(s): F41.9 - Anxiety disorder, unspecified (4) Anemia in preg-unspec: Status: Acute Code(s): O99.019 - Anemia complicating , unspecified trimester Qualifiers: Trimester: third trimester Qualified Code(s): O99.013 - Anemia complicating , third trimester (5) Obesity affecting : Status: Acute Code(s): O99.210 - Obesity complicating , unspecified trimester Qualifiers: Trimester: third trimester Obesity type affecting : unspecified obesity Qualified Code(s): O99.213 - Obesity complicating , third trimester (6) : Status: Acute Code(s): Z34.90 - Encounter for supervision of normal , unspecified, unspecified trimester Qualifiers: Weeks of gestation: 38 weeks Qualified Code(s): Z3A.38 - 38 weeks gestation of (7) Supervision of high-risk : Status: Acute Code(s): O09.90 - Supervision of high risk , unspecified, unspecified trimester Qualifiers: Trimester: third trimester Qualified Code(s): O09.93 - Supervision of high risk , unspecified, third trimester (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: Status: Acute Code(s): B97.7 - Papillomavirus as the cause of diseases classified elsewhere (9) History of miscarriage, currently : Status: Acute Code(s): O09.299 - Supervision of with other poor reproductive or obstetric history, unspecified trimester (10) LGSIL of cervix of undetermined significance: Status: Acute Code(s): R87.612 - Low grade squamous intraepithelial lesion on cytologic smear of cervix (LGSIL) Medications at Discharge Home Medications cetirizine 10 mg capsule (Zyrtec) 10 mg PO DAILY 08/20/18 citalopram 20 mg tablet (Celexa) 20 mg PO DAILY 03/26/23 multivit-min no.71-iron fum 28 mg-folate no.1 1 mg-dha 300 mg capsule (PNV-Brighton) 1 cap PO 07/03/23 ferrous sulfate 325 mg (65 mg iron) tablet (iron) 325 mg PO DAILY 01/20/24 amoxicillin 500 mg capsule 875 mg PO BID 02/11/24 naproxen 500 mg tablet 500 mg PO BID PRN PRN Pain #30 tabs 02/20/24 oxycodone-acetaminophen 5 mg-325 mg tablet (Percocet) 1 tab PO Q6H PRN pain 7 days #20 tabs 02/20/24 Hospital Course Operations section Procedures None Summary of Care Provided Minutes Spent on Discharge: 30 Physical Exam Const alert, oriented x3 and no apparent distress Neck full ROM Resp normal respiratory effort, normal air movement and no retractions Effort and Inspection: able to speak in complete sentences and symmetric chest movement GI soft to palpation Inspection: incision intact Bladder / Kidney Exam: bladder normal to palpation Uterus Palpation: uterus fundus Extremity normal to inspection and full ROM Psych mental status grossly normal, thought process normal and cooperative Weight / BMI Weight Weight: 182 lb Body Mass Index (BMI) 30.2 ABG / Lab / Microbiology Data 02/21/24 05:02 D/C Instructions Discharge Diet: No restrictions May shower in (days): 0 May resume sexual activity in: 4-6 weeks Weight Bearing Status: Full weight bearing Call your doctor if your incision/area has: Continuous Slow Oozing, Sudden Increased Bleeding, Increased Pain/ Swelling, Increased Redness and Foul Smelling Discharge Call your doctor if you observe: Fever of 101 or Higher and Using more than 1 pad per hour (for 2 hours) Suture Line Care: Avoid Pulling/Pushing and Avoid Pinching/Bending Cleanse incision/area with: Soap & Water and Keep Dressing Clean & Dry Please Follow Up With: Sandi Longo MD When: Call [phone] to make an appointment for an incision check in 1-2 weeks. Meaningful Use Info Meaningful Use Meaningful Use Diagnoses (Choose all that apply): None applicable Ischemic Stroke Statin Dosing Therapy Reference: STATIN DOSE THERAPY REFERENCE: * Patients > 75 years receive moderate or high dose statin therapy. * Patients 75 years or YOUNGER should receive HIGH intensity statin dose unless contraindicated. You will be required to document reason for non-treatment if statin daily dose does not meet guidelines. HIGH DOSE STATIN THERAPY DAILY Atorvastatin > than or = to 40 mg Rosuvastatin > than or = to 20 mg Amlodipine + Atorvastatin > than or = to 2.5/40 mg Ezetimibe + Simvastatin 10/80 mg Simvastatin 80mg Discharge Plan Admission Admit Date/Time: 02/18/24 17:05 Attending Provider: Sandi Longo Primary Care Provider: Care Physician,Dacia Primary Discharge Orders/Prescriptions Prescriptions: New oxycodone-acetaminophen [Percocet] 5-325 mg tablet 1 tab PO Q6H PRN (Reason: pain) 7 Days Qty: 20 0RF naproxen 500 mg tablet 500 mg PO BID PRN PRN (Reason: Pain) Qty: 30 1RF No Action citalopram [Celexa] 20 mg tablet 20 mg PO DAILY PNV-Brighton 28-1-300 mg capsule 1 cap PO amoxicillin 500 mg capsule 875 mg PO BID Zyrtec 10 MG capsule 10 mg PO DAILY ferrous sulfate [iron] 325 mg (65 mg iron) tablet 325 mg PO DAILY Referrals / Follow Up: Care Physician,No Primary [Primary Care Provider] - Disposition Disposition (needs filled in before D/C Order can be placed): Home, Self Care Charges/Coding Multi Select Codes Urinary/Genital Urinary/Genital CPT Codes: No Charge
[2024-02-22 08:00] VITALS: BP 116/64; PULSE 90; RESP 16; TEMP 36.5; O2SAT 100
[2024-02-22] MEDS: Citalopram 20 MG Tablet PO (09:33)
[2024-02-22] MEDS: Senna/Docusate Sodium 1 Tablet PO (09:33)
--- NOTE | 2024-02-26 15:19 | NURSING ---
Follow up phone call questions asked during an outpatient visit. Patient is doing well, only minimal bleeding and not a lot of discomfort. C/s dressing is dry and intact. Patient denies any headaches, visual disturbances, flu-like symptoms, or Baby Blues. Patient states she loved all of her nurses and Dr. Longo.
--- NOTE | 2024-03-08 08:08 | NURSING ---
Edited phillip hess for accuracy
== END 2024-02-22 10:30 | disposition home or self-care (01) | DRG 788 ==
LOC: WPOUT 17:09 → WP 17:09
PROVIDERS: Obstetrics & Gynecology; Admitting Provider Obstetrics & Gynecology; Visit Provider Obstetrics & Gynecology
DX: O64.8XX0 Obstructed labor due to other malposition and malpresentation, not applicable or unspecified (principal); O99.214 Obesity complicating childbirth; B95.1 Streptococcus, group B, as the cause of diseases classified elsewhere; D64.9 Anemia, unspecified; F41.9 Anxiety disorder, unspecified; O99.824 Streptococcus B carrier state complicating childbirth; Z3A.38 38 weeks gestation of pregnancy; Z37.0 Single live birth; Z86.16 Personal history of COVID-19; O99.02 Anemia complicating childbirth; O99.344 Other mental disorders complicating childbirth; O99.892 Other specified diseases and conditions complicating childbirth; M95.5 Acquired deformity of pelvis; B97.7 Papillomavirus as the cause of diseases classified elsewhere
CPT/HCPCS: 59025; 59050; 84112; 85025; 85027; 86780; 86850; 86900; 86901; 99221; J7030; J7120; A4216; G0378; J2405

== ENCOUNTER → 2024-03-31 | Outpatient (CLI) | payer OTHER, SELFPAY ==
[2024-03-31 12:06] LABS: Absolute Lymphocyte Count 2.91 X10^3/uL (0.83-4.51); Absolute Neutrophil Count 4.4 X10^3/uL (2.0-7.7); Basophil# 0.08 X10^3/uL; Basophil% 0.9 % (0-1); Eosinophil# 0.85 X10^3/uL; Eosinophils% 9.7 % (0-5); Hematocrit 39.6 % (37-47); Hemoglobin 12.9 g/dL (12.0-15.0); Lymphocyte # 2.91 X10^3/ul (0.83-4.51); Lymphocyte % 33.1 % (19-41); Mean Corp Hgb Conc 32.6 g/dL (32-36); Mean Corpuscular Hgb 29.5 pg (27.0-32.0); Mean Corpuscular Volume 90.6 fL (81-99); Mean Platelet Vol. 10.5 fl (6.2-12.0); Monocyte# 0.55 X10^3/uL; Monocyte% 6.3 % (0-10); NRBC Flagged by Analyzer 0 % (0-5); Neutrophil # 4.37 X10^3/uL (2.7-7.7); Neutrophil % 49.8 % (47-70); Platelet Count 266 K/mm3 (150-450); RBC Distribution Width CV 12.8 % (11.6-14.6); Red Blood Count 4.37 M/mm3 (4.2-5.4); White Blood Count 8.8 K/mm3 (4.4-11.0)
== END | disposition home or self-care (01) ==
LOC: MFPLAB 09:41
PROVIDERS: PCP Family Medicine; Visit Provider Family Medicine
DX: D64.9 Anemia, unspecified (principal)
CPT/HCPCS: 36415; 85025

== ENCOUNTER → 2024-04-04 | Outpatient (CLI) | payer OTHER, SELFPAY ==
[2024-04-11 09:08] LABS: HPV APTIMA, High Risk Negative (Negative)
== END | disposition home or self-care (01) ==
LOC: LABSPEC 14:33
PROVIDERS: PCP Family Medicine; Referring Provider Obstetrics & Gynecology; Visit Provider Obstetrics & Gynecology
DX: Z12.4 Encounter for screening for malignant neoplasm of cervix (principal)
CPT/HCPCS: 87624; 88175; G0145

== ENCOUNTER → 2025-05-17 | Outpatient (CLI) | payer OTHER, SELFPAY ==
[2025-05-18 20:08] LABS: Chlamydia By Nucleic Acid AMP Negative (Negative); Gonococcus By Nucleic Acid AMP Negative (Negative)
== END | disposition home or self-care (01) ==
LOC: LABSPEC 11:03
PROVIDERS: PCP Family Medicine; Referring Provider Obstetrics & Gynecology; Visit Provider Obstetrics & Gynecology
DX: O09.90 Supervision of high risk pregnancy, unspecified, unspecified trimester (principal); Z3A.00 Weeks of gestation of pregnancy not specified
CPT/HCPCS: 87086; 87088; 87491; 87591

== ENCOUNTER → 2025-05-31 | Outpatient (CLI) | payer OTHER, SELFPAY ==
[2025-05-31 12:28] LABS: Hematocrit 37.4 % (37-47); Hemoglobin 13.0 g/dL (12.0-15.0); Immature Granulocytes Count 0.030 X10^3/uL (0.0-0.0); Mean Corp Hgb Conc 34.8 g/dL (32-36); Mean Corpuscular Volume 88.4 fL (81-99); Mean Platelet Vol. 10.8 fl (6.2-12.0); NRBC Flagged by Analyzer 0 % (0-5); Platelet Count 269 K/mm3 (150-450); RBC Distribution Width CV 12.0 % (11.6-14.6); RBC Distribution Width SD 38.7 fl (35.1-43.9); Red Blood Count 4.23 M/mm3 (4.2-5.4); White Blood Count 9.2 K/mm3 (4.4-11.0)
[2025-05-31 13:35] LABS: HIV Nonreactive (Nonreactive); Hepatitis B Surface Antigen Nonreactive (Nonreactive); Hepatitis C Antibody Nonreactive (Nonreactive); Syphilis Antibodies Nonreactive (Nonreactive)
== END | disposition home or self-care (01) ==
PROVIDERS: PCP Family Medicine; Visit Provider Obstetrics & Gynecology
DX: O99.210 Obesity complicating pregnancy, unspecified trimester (principal); Z3A.00 Weeks of gestation of pregnancy not specified
CPT/HCPCS: 36415; 83036; 85025; 86703; 86762; 86780; 86803; 86850; 86900; 86901; 87340

== ENCOUNTER → 2025-08-07 | Outpatient (CLI) | payer OTHER, SELFPAY ==
--- NOTE | 2025-08-07 08:40 | US_ITS ---
PROCEDURE: OB ANATOMY SCAN 08/07/2025 REASON FOR EXAM: ANATOMY SCAN TECHNIQUE: Procedure Code: USOBANATOMY Modality: US Procedure: OB ANATOMY SCAN COMPARISON: None FINDINGS LMP: March 19, 2025 Number: 1 Position: Vertex Placental Position: Posterior and fundal in location. Placental Abnormalities: No evidence of previa. DIMENSIONS: Biparietal Diameter: 4.8 cm: 20 weeks and 3 days: 65 percentile/ Head Circumference: 17.9 cm: 20 weeks and 3 days: 53rd percentile/ Abdominal Circumference: 15 cm: 20 weeks and 2 days: 49 percentile/ Femur Length: 3.3 cm: 20 weeks and 2 days: 50 percentile/ ESTIMATED WEIGHT: 340 g plus/-52 g ESTIMATED WEIGHT PERCENTILE (24+ weeks): 57 ESTIMATED GESTATIONAL AGE: Baseline: 20 weeks and 1 day By Ultrasound: 20 weeks and 3 days ESTIMATED DATE OF DELIVERY: Baseline: December 24, 2025 By Ultrasound: December 22, 2025 BIOPHYSICAL ASSESSMENT: Amniotic Fluid Volume: 5.6 cm Amniotic Fluid Index: Within normal limits. (8-24 cm normal range) Cardiac Motion: 137 beats per minute (average) Trunk and Limb Motion: Present. MATERNAL ANATOMY: Adnexa: Neither maternal ovary is successfully identified. Cervical Length (if measured): 4 cm ANATOMY: Spine: Unremarkable Cranium: Unremarkable Cerebellum: Unremarkable Cisterna Magna: Unremarkable Cavum Septum Pellucidi: Unremarkable Lateral Ventricles: Unremarkable Choroid Plexus: Unremarkable Midline Falx: Unremarkable Nuchal Fold: Unremarkable Upper Lip: Unremarkable Heart: Unremarkable Stomach: Unremarkable Kidneys: Unremarkable Bladder: Unremarkable Umbilical Cord: Normal placental insertion. cord insertion not seen well. Extremities: Unremarkable US/OB Anatomy Scan IMPRESSION: Single live intrauterine gestation with a mean gestational age of 20 weeks and 3 days. Reading Location: [facility]
== END | disposition home or self-care (01) ==
PROVIDERS: PCP Family Medicine; Referring Provider Obstetrics & Gynecology; Visit Provider Obstetrics & Gynecology
DX: O99.891 Other specified diseases and conditions complicating pregnancy (principal); N89.8 Other specified noninflammatory disorders of vagina
CPT/HCPCS: 76805; 87070; 87205